=== PATIENT | female | born 1995 | race Caucasian/White ===

== ENCOUNTER 2022-03-31 10:38 | Emergency (ER) | payer SELFPAY ==
--- NOTE | ~2022-03-31 | US_ITS ---
US abdomen limited INDICATION: Right upper quadrant pain. History of gallstones. PROCEDURE: Realtime right upper abdominal ultrasound. COMPARISON: No prior studies for comparison. FINDINGS: The pancreas is normal without focal mass or pancreatic ductal dilation. Liver echotexture is increased, consistent with fatty infiltration. There is normal directional flow in the portal ve in. There are gallstones. Common bile duct measures 4.7 mm. No sonographic Recinos's sign. IMPRESSION: 1: Cholelithiasis. 2: Hepatic steatosis. Reviewed, dictated and finalized at location B. FABRICATOR
[2022-03-31 11:04] VITALS: BP 131/71; PULSE 110; RESP 18; TEMP 36.8; O2SAT 99
[2022-03-31 11:04] LABS: Basophils Percent Auto 0.4 % (0.2-1.2); Eosinophils Absolute Auto 0.1 K/mm3 (0-0.3); Eosinophils Percent Auto 1.2 % (0-4.4); Hematocrit 42.5 % (37.0-47.0); Hemoglobin 14.1 g/dL (12.0-15.0); Immature Granulocyte Absolute 0.04 K/mm3 (0.00-0.031); Immature Granulocyte Percent A 0.5 % (0-0.5); Lymphocytes Absolute Auto 1.94 K/mm3 (0.9-3.2); Lymphocytes Percent Auto 25.8 % (18.3-44.2); Mean Corpuscular HGB Conc 33.2 g/dl (32-36); Mean Corpuscular Hemoglobin 29.9 pg (26-34); Mean Platelet Volume 9.3 fl (7.4-10.4); Monocytes Absolute Auto 0.5 K/mm3 (0.1-0.6); Monocytes Percent Auto 6.6 % (2.6-8.5); Neutrophils Absolute Auto 4.9 K/mm3 (1.3-6.7); Neutrophils Percent Auto 65.5 % (45.5-73.1); Platelet Count Result 296 k/mm3 (150-375); Red Blood Count 4.72 M/mm3 (4.2-5.4); Red Cell Distribution Width 13.8 % (11.5-14.5); White Blood Count 7.5 K/mm3 (4.5-10.0)
[2022-03-31 11:08] LABS: Add Urine Microscopic? NO; Appearance Urine Slightly Cloudy (Clear); Bilirubin Urine Negative (Negative); Blood Urine Negative (Negative); Color Urine Light Yellow (Yellow); Glucose Urine UA Negative (Negative); Ketones Urine Negative (Negative); Leukocyte Esterase Ur Negative LEU/UL (Negative); Nitrate Urine Negative (Negative); Protein Urine Negative (Negative); Urobilinogen Urine 0.2 mg/dL (<2.0); pH Urine 7.5 (5.0-9.0)
[2022-03-31 11:15] LABS: Alanine Aminotransferase 31 U/L (6-35); Albumin Level 4.6 g/dL (3.5-5.1); Alkaline Phosphatase 81 U/L (38-126); Anion Gap 10 mmol/L (8-16); Aspartate Amino Transferase 26 U/L (14-36); Bilirubin,Total 0.2 mg/dL (0.2-1.3); Blood Urea Nitrogen 10 mg/dL (7-17); Calcium 8.8 mg/dL (8.4-10.2); Carbon Dioxide 21 mmol/L (22-30); Chloride 104 mmol/L (98-107); Estimated Glomerular Filt Rate > 60; Glucose 118 mg/dL (65-110); Lipase 81 U/L (23-300); Potassium 3.6 mmol/L (3.4-5.0); RBC Urine 0-2 /hpf (0-2); Sodium 135 mmol/L (137-145); Squamous Epithelial Cell Urine Many /hpf (Few); WBC Urine 0-3 /hpf
[2022-03-31 13:00] VITALS: BP 138/91; PULSE 93; RESP 18; O2SAT 99
--- NOTE | 2022-03-31 13:34 | ED.ABDPAIN ---
HPI - Abdominal Pain General Chief Complaint: Abdominal Pain Stated Complaint: back pain, vomiting Time Seen by Provider: 03/31/22 12:48 Source: patient Mode of arrival: ambulatory Limitations: no limitations History of Present Illness HPI narrative: This is a 26 year old female that presents to the ER for RUQ abdominal pain ongoing over the last couple of weeks. Associated with nausea and vomiting. She was seen in the ER for this and had imaging done and was referred to a general surgeon for gallstones. She followed up with her PCP who sent her back to the ER. Reports some diarrhea. Has been taking [place] as needed for pain. Denies fever or hematochezia. Related Data Home Medications Medication Instructions Recorded Confirmed oxcarbazepine 600 mg tablet mg 03/31/22 risperidone 2 mg tablet mg 03/31/22 topiramate 200 mg tablet mg 03/31/22 venlafaxine 150 mg mg PO 03/31/22 capsule,extended release 24 hr Allergies Allergy/AdvReac Type Severity Reaction Status Date / Time No Known Allergies Allergy Verified 03/31/22 14:01 Review of Systems Review of Systems: CONSTITUTIONAL: Denies fever GASTROINTESTINAL: Reports abdominal pain, nausea, vomiting, and diarrhea. GENITOURINARY: Denies dysuria All systems reviewed & are unremarkable except as noted in HPI and below PMFSH Past Medical History Medical History (Updated 03/31/22 @ 15:23 by Elizabeth Oquendo PA-C) History of anxiety History of migraine Surgical History Surgical History (Updated 03/31/22 @ 13:37 by Elizabeth Oquendo PA-C) History of Social History Social History (Updated 03/31/22 @ 13:38 by Elizabeth Oquendo PA-C) Smoking status: Never smoker Substance use: current Substance use type: marijuana Exam Narrative: GENERAL: Well-appearing, well-nourished, and in no acute distress. HEAD: Normocephalic, atraumatic. EYES: EOMI. CHEST: Clear to auscultation. No respiratory distress. No wheezes rales or rhonchi HEART: Regular rate and rhythm. No murmur heard. Normal peripheral pulses. ABDOMEN: Soft, nondistended, normal active bowel sounds. Tender to palpation in the right upper quadrant, without guarding. No CVA tenderness EXTREMITIES: Normal range of motion. No edema. SKIN: Warm, dry, no rash. NEURO: No focal deficits. Alert and oriented x3. PSYCH: Normal mood and affect Course Course Emergency Course: Patient was updated on case findings. Resting comfortably. Agrees with plan of care. Reports she has follow-up with general surgery April 09 Vital Signs Vital signs: Vital Signs Temperature 98.2 F 03/31/22 11:04 Pulse Rate 110 H 03/31/22 11:04 Respiratory Rate 18 03/31/22 11:04 Blood Pressure 131/71 03/31/22 11:04 Pulse Oximetry 99 03/31/22 11:04 Oxygen Delivery Room Air 03/31/22 11:04 Temperature 98.2 F 03/31/22 11:04 Pulse Rate 86 03/31/22 14:48 Respiratory Rate 16 03/31/22 14:48 Blood Pressure 123/93 H 03/31/22 14:48 Pulse Oximetry 98 03/31/22 14:48 Oxygen Delivery Room Air 03/31/22 11:04 MDM - Abdominal Pain MDM Narrative Medical decision making narrative: Patient presents to the emergency department for right upper quadrant pain ongoing over the last couple of weeks. She is afebrile and nontoxic-appearing. Mildly tachycardic upon arrival, this normalized with IV fluid hydration and pain medication. CBC is without leukocytosis. Liver enzymes and lipase are normal. UA without evidence of infection. Her bedside test is negative. Right upper quadrant ultrasound shows cholelithiasis and hepatic steatosis. No sonographic Recinos sign or evidence of cholecystitis. Patient was updated on case findings. Resting comfortably. Agrees with plan of care. Reports she has follow-up with general surgery April 09. Will be given the name of our general surgeons if needed. She was instructed on a low-fat diet and pain medication as needed in the meantime. She was gi
[2022-03-31] MEDS: MORPHINE SULFATE (*CRX) 4 MG/ML INJ IV PUSH (14:03)
[2022-03-31] MEDS: ONDANSETRON INJ 4 MG/2 ML VIAL IV PUSH (14:03)
[2022-03-31] MEDS: SODIUM CHLORIDE 0.9% IV 500 ML 999 ML IV CONT (14:47)
[2022-03-31 14:48] VITALS: BP 123/93; PULSE 86; RESP 16; O2SAT 98
[2022-03-31 15:40] VITALS: BP 128/82; PULSE 91; RESP 16; O2SAT 99
== END 2022-03-31 15:41 | disposition home or self-care (01) ==
PROVIDERS: Emergency Medicine; Emergency Provider Physician Assistant
DX: K80.20 Calculus of gallbladder without cholecystitis without obstruction (principal); K76.0 Fatty (change of) liver, not elsewhere classified
CPT/HCPCS: 36415; 76705; 80053; 81003; 81025; 83690; 85025; 96361; 96365; 96375; 99284; J0131; J2270; J2405; J7040

== ENCOUNTER 2022-08-04 09:57 | Emergency (ER) | payer SELFPAY ==
[2022-08-04 10:00] VITALS: BP 140/98; PULSE 110; RESP 18; TEMP 37.3; O2SAT 98
--- NOTE | 2022-08-04 10:09 | ED_ITS ---
HPI - General Adult General Chief complaint: Abdominal Pain Stated complaint: abdominal pain Time Seen by Provider: 08/04/22 10:09 Related Data Home Medications Medication Instructions Recorded Confirmed oxcarbazepine 600 mg tablet 600 mg PO AC 03/31/22 08/04/22 risperidone 2 mg tablet 2 mg PO DAILY 03/31/22 08/04/22 topiramate 200 mg tablet 200 mg PO DAILY 03/31/22 08/04/22 venlafaxine 150 mg 150 mg PO DAILY 03/31/22 08/04/22 capsule,extended release 24 hr hydroxyzine pamoate 50 mg capsule 50 mg PO TID 08/04/22 08/04/22 lorazepam 0.5 mg tablet 0.5 mg PO PRN PRN Anxiety 08/04/22 08/04/22 Allergies Allergy/AdvReac Type Severity Reaction Status Date / Time No Known Allergies Allergy Verified 08/04/22 10:02 [facility] Past Medical History Medical History History of anxiety History of migraine Surgical History Surgical History History of Social History Social History Smoking status: Never smoker Substance use: current Substance use type: marijuana Course Vital Signs Vital signs: Vital Signs Temperature 37.3 C 08/04/22 10:00 Pulse Rate 110 H 08/04/22 10:00 Respiratory Rate 18 08/04/22 10:00 Blood Pressure 140/98 H 08/04/22 10:00 Pulse Oximetry 98 08/04/22 10:00 Oxygen Delivery Room Air 08/04/22 10:00 Temperature 37.3 C 08/04/22 10:00 Pulse Rate 110 H 08/04/22 10:00 Respiratory Rate 18 08/04/22 10:00 Blood Pressure 140/98 H 08/04/22 10:00 Pulse Oximetry 98 08/04/22 10:00 Oxygen Delivery Room Air 08/04/22 10:00 Medical Decision Making Vital Signs Vital Signs: Vital Signs Temperature 37.3 C 08/04/22 10:00 Pulse Rate 110 H 08/04/22 10:00 Respiratory Rate 18 08/04/22 10:00 Blood Pressure 140/98 H 04/18/23 10:00 Pulse Oximetry 98 08/04/22 10:00 Oxygen Delivery Room Air 08/04/22 10:00 Temperature 37.3 C 08/04/22 10:00 Pulse Rate 110 H 08/04/22 10:00 Respiratory Rate 18 08/04/22 10:00 Blood Pressure 140/98 H 08/04/22 10:00 Pulse Oximetry 98 08/04/22 10:00 Oxygen Delivery Room Air 08/04/22 10:00 Discharge Plan Discharge Prescriptions: No Action hydroxyzine pamoate 50 mg capsule 50 mg PO TID lorazepam 0.5 mg tablet 0.5 mg PO PRN PRN (Reason: Anxiety) venlafaxine 150 mg capsule,extended release 24hr 150 mg PO DAILY risperidone 2 mg tablet 2 mg PO DAILY oxcarbazepine 600 mg tablet 600 mg PO AC Rx Instructions: 1200 mg hs topiramate 200 mg tablet 200 mg PO DAILY Follow-up/Referrals: UNKNOWN,DOCTOR [Primary Care Provider] -
--- NOTE | 2022-08-04 10:10 | ED.ABDPAIN ---
HPI - Abdominal Pain General Chief Complaint: Abdominal Pain Stated Complaint: abdominal pain Time Seen by Provider: 08/04/22 10:09 Source: patient Mode of arrival: ambulatory History of Present Illness HPI narrative: 26-year-old female, smoker this marijuana use, with a history of anxiety / depression, migraine presents to the ER with a five-day history of -- left flank/ lower abdominal pain. No nausea/ vomiting. No fever -- chronic diarrhea since the cholecystectomy 5 months ago -- increased urinary frequency. No dysuria or hematuria MD elicited complaint: abdominal pain and flank pain Pertinent past history: none Onset (ago): day(s) ( started 5 days ago) Pain Consistency: constant Location: R flank and suprapubic Severity: moderate Quality: aching Radiation: none Migration to: no migration Exacerbating factors: nothing Relieving factors: nothing Associated symptoms: diarrhea Related Data Patient : No Home Medications Medication Instructions Recorded Confirmed oxcarbazepine 600 mg tablet 600 mg PO AC 03/31/22 08/04/22 risperidone 2 mg tablet 2 mg PO DAILY 03/31/22 08/04/22 topiramate 200 mg tablet 200 mg PO DAILY 03/31/22 08/04/22 venlafaxine 150 mg 150 mg PO DAILY 03/31/22 08/04/22 capsule,extended release 24 hr hydroxyzine pamoate 50 mg capsule 50 mg PO TID 08/04/22 08/04/22 lorazepam 0.5 mg tablet 0.5 mg PO PRN PRN Anxiety 08/04/22 08/04/22 Allergies Allergy/AdvReac Type Severity Reaction Status Date / Time No Known Allergies Allergy Verified 08/04/22 10:02 Review of Systems Review of Systems: All systems reviewed & are unremarkable except as noted in HPI and below Constitutional: Constitutional: Reports as per HPI and Reports no additional constitutional complaints Eyes: Eyes: Reports as per HPI and Reports no additional eye complaints ENT: Reports system reviewed and no additional complaints, except as documented and Reports as per HPI Cardiovascular: Cardiovascular: Reports as per HPI and Reports no additional cardiovascular complaints Respiratory: Respiratory: Reports as per HPI and Reports no additional respiratory complaints Gastrointestinal: Gastrointestinal: Reports as per HPI, Reports no additional gastrointestinal complaints, Reports abdominal pain and Reports diarrhea Genitourinary: Genitourinary: Reports no additional female genitourinary complaints and Reports as per HPI Musculoskeletal: Musculoskeletal: Reports no additional musculoskeletal complaints and Reports as per HPI Integumentary/Breasts: Skin/Breast: Reports system reviewed and no additional complaints, except as docu and Reports as per HPI Neurologic: Reports system reviewed and no additional complaints, except as documented and Reports as per HPI Psychiatric: Psychiatric: Reports no additional psychiatric complaints and Reports as per HPI Endocrine: Endocrine: Reports no additional endocrine complaints and Reports as per HPI Hematologic/Lymphatic: Hematologic/Lymphatic: Reports no additional hematologic/lymphatic complaints and Reports as per HPI Allergic/Immunologic: Allergic/Immunologic: Reports no additional allergic/immunologic complaints and Reports as per HPI [facility] Past Medical History Medical History History of anxiety History of migraine Surgical History Surgical History History of Social History Social History Smoking status: Never smoker Substance use: current Substance use type: marijuana Exam Narrative: tachycardia with a heart rate of 110. Blood pressure 140/98. Const: General: no acute distress Nutritional Appearance: obese HENMT: Head: normal to inspection Ears: external ears normal Face/Nose/Sinus: Normal external nose present Face and sinus: normal facial exam Mouth: Yes Normal oral and claire
--- NOTE | 2022-08-04 10:16 | PC.NURSE ---
assisted with patient examination
[2022-08-04 10:34] LABS: Pregnancy On Board Control Positive; Urine Pregnancy Test Negative
[2022-08-04 10:36] LABS: Appearance Urine Clear (Clear); Bilirubin Urine Negative (Negative); Blood Urine Negative (Negative); Color Urine Light Yellow (Yellow); Glucose Urine UA Negative (Negative); Ketones Urine Negative (Negative); Leukocyte Esterase Ur Negative LEU/UL (Negative); Nitrate Urine Negative (Negative); Protein Urine Negative (Negative); Urobilinogen Urine 0.2 mg/dL (0.2-1.0)
[2022-08-04 10:40] LABS: Basophils Absolute Auto 0.04 K/mm3 (0.00-0.10); Basophils Percent Auto 0.5 % (0.0-1.0); Eosinophils Absolute Auto 0.11 K/mm3 (0.02-0.50); Eosinophils Percent Auto 1.5 % (1.0-6.0); Hematocrit 41.2 % (35.0-49.0); Hemoglobin 13.6 g/dL (12.0-15.0); Immature Granulocyte Absolute 0.12 K/mm3 (0.00-0.00); Immature Granulocyte Percent A 1.6 % (0.0-0.0); Lymphocytes Absolute Auto 2.04 K/mm3 (1.10-4.50); Mean Corpuscular Hemoglobin 30.4 pg (27.0-31.0); Monocytes Absolute Auto 0.41 K/mm3 (0.10-0.90); Monocytes Percent Auto 5.4 % (2.0-11.0); Neutrophils Absolute Auto 4.8 K/mm3 (1.7-7.2); Platelet Count Result 281 K/mm3 (150-420); Red Blood Count 4.48 M/mm3 (4.20-5.40); Red Cell Distribution Width 13.4 % (11.6-14.4); White Blood Count 7.6 K/mm3 (4.8-10.8)
[2022-08-04 10:52] LABS: Add Urine Microscopic? NO
[2022-08-04 10:53] LABS: INR 0.9; Prothrombin Time 10.2 Seconds (9.50-12.10)
[2022-08-04 10:56] LABS: Alanine Aminotransferase 36 U/L (14-59); Albumin Level 3.4 g/dL (3.4-5.0); Alkaline Phosphatase 105 U/L (46-116); Anion Gap 9 mmol/L (8-16); Aspartate Amino Transferase 22 U/L (15-37); Bilirubin,Total 0.2 mg/dL (0.00-1.00); Blood Urea Nitrogen 10 mg/dL (7-18); Calcium 8.6 mg/dL (8.5-10.1); Carbon Dioxide 26 mmol/L (21-32); Chloride 104 mmol/L (98-108); Estimated CRCL calculation 121 ml/min; Estimated Glomerular Filt Rate > 60; Glucose 94 mg/dL (70-99); Lipase 29 U/L (16-77); Osmolality Calculated 287 mOsm/kg (285-295); Potassium 4.1 mmol/L (3.5-5.1); Sodium 139 mmol/L (136-145); Total Protein 6.9 g/dL (6.4-8.2)
[2022-08-04 10:59] LABS: Lactic Acid Reflex 1.5 mmol/L (0.4-2.0)
[2022-08-04 11:22] VITALS: BP 121/74; PULSE 74; RESP 16; O2SAT 100
== END 2022-08-04 11:25 | disposition home or self-care (01) ==
PROVIDERS: Emergency Provider Internal Medicine Critical Care Medicine
DX: R10.30 Lower abdominal pain, unspecified (principal); F41.9 Anxiety disorder, unspecified
CPT/HCPCS: 36415; 80053; 81001; 81003; 81025; 83605; 83690; 85025; 85610; 99283

== ENCOUNTER 2023-01-29 12:04 | Emergency (ER) | payer OTHER, SELFPAY ==
--- NOTE | ~2023-01-29 | CT_ITS ---
EXAMINATION: CT abdomen pelvis w con DATE: 01/29/2023 13:25 INDICATION: Low abdominal cramping. Nausea. Umbilical bleeding. TECHNIQUE: Computed tomography (CT) of the abdomen and pelvis was performed with 100 mL Omnipaque 350 intravenous contrast. Automated exposure control and iterative reconstruction technique were employe d. The dose-length product was 1463.35 mGy-cm. COMPARISON: None. FINDINGS: The visualized portions of the lung bases demonstrate minimal atelectasis. There is a 5 mm nodule in right lower lobe, likely benign. No pleural effusion. The heart size is normal. No pericard ial effusion. The liver is normal. There are changes of cholecystectomy. The spleen, pancreas, adrena l glands, and kidneys are normal. There is a 3.9 cm cyst in right ovary. There are no dilated loops o f bowel. The appendix is normal. There are no pathologically enlarged lymph nodes. There is no free i ntraperitoneal fluid. There is soft tissue thickening at the umbilicus with small focus of gas. There is mild thoracolumbar spondylosis. IMPRESSION: 1. 3.9 cm cyst in right ovary, likely a follicular cyst. 2. Soft tissue thickening at the umbilicus, consistent with inflammation. No drainable abscess. Reviewed, dictated and finalized at location A. IMPRESSION: 1. 3.9 cm cyst in right ovary, likely a follicular cyst. 2. Soft tissue thickening at the umbilicus, consistent with inflammation. No dr maye abscess.
[2023-01-29 12:04] VITALS: BP 137/95; PULSE 121; RESP 19; TEMP 37; O2SAT 97
--- NOTE | 2023-01-29 12:27 | ED.ABDPAIN ---
HPI - Abdominal Pain General Chief Complaint: Abdominal Pain Stated Complaint: belly button bleeding Time Seen by Provider: 01/29/23 12:07 Source: patient Mode of arrival: ambulatory Limitations: no limitations History of Present Illness HPI narrative: Patient is a 27-year-old female with a significant past medical history that presents today for umbilical bleeding. She states that she 1st noticed this yesterday she had blood coming out of her umbilical. She has never this in the past. She does admit to getting frequent nose bleeds. She also has abdominal cramping in the lower abdominal area is more generalized. She also states she has not had a period in 6 months but used to be regular before that. 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 She denies any systemic symptoms. MD elicited complaint: abdominal pain Pertinent past history: none Onset (ago): day(s) Pain Consistency: intermittent Location: diffuse Severity: mild Pain scale (0-10): 2 Quality: cramping Radiation: RLQ Exacerbating factors: nothing Relieving factors: nothing Associated symptoms: other (umbilical bleeding) Related Data Date of Last Menstrual Period: 07/28/22 Patient : No Home Medications Medication Instructions Recorded Confirmed oxcarbazepine 600 mg tablet 600 mg PO AC 03/31/22 01/29/23 (Trileptal) risperidone 2 mg tablet 2 mg PO DAILY 03/31/22 01/29/23 topiramate 200 mg tablet 200 mg PO DAILY 03/31/22 01/29/23 venlafaxine 150 mg 150 mg PO DAILY 03/31/22 01/29/23 capsule,extended release 24 hr (Effexor XR) lorazepam 0.5 mg tablet 0.5 mg PO PRN PRN Anxiety 08/04/22 01/29/23 pantoprazole 40 mg tablet,delayed 40 mg PO DAILY 01/29/23 01/29/23 release Allergies Allergy/AdvReac Type Severity Reaction Status Date / Time No Known Allergies Allergy Verified 01/29/23 12:12 Review of Systems Review of Systems: All systems reviewed & are unremarkable except as noted in HPI and below Constitutional: Constitutional: Reports as per HPI Eyes: Eyes: Reports no additional eye complaints ENT: Reports system reviewed and no additional complaints, except as documented Cardiovascular: Cardiovascular: Reports no additional cardiovascular complaints Respiratory: Respiratory: Reports no additional respiratory complaints Gastrointestinal: Gastrointestinal: Reports abdominal pain ( generalized) and Reports other (umbilical bleeding) Musculoskeletal: Musculoskeletal: Reports no additional musculoskeletal complaints Integumentary/Breasts: Skin/Breast: Reports system reviewed and no additional complaints, except as docu Neurologic: Reports system reviewed and no additional complaints, except as documented Psychiatric: Psychiatric: Reports no additional psychiatric complaints Endocrine: Endocrine: Reports no additional endocrine complaints PMFSH Past Medical History Medical History History of anxiety History of migraine Surgical History Surgical History History of Social History Social History Smoking status: Never smoker Substance use: current Substance use type: marijuana Exam Const: General: cooperative, healthy appearing and comfortable Nutritional Appearance: obese Orientation/consciousness: oriented to person and oriented to place Limitations: no limitations HENMT: Head: normal to inspection Ears: hearing grossly normal bilaterally Eyes: General: appearance normal, both eyes and all related structures Neck: Neck: normal visual inspection Chest: Chest palpation & inspection: normal inspection of the chest Resp: Effort & Inspection: normal respiratory effort Auscultation: clear to auscultation bilaterally Percussion: percussion normal Cardio: Jugular venous distension: no JVD Palpation: normal PMI Rate: r
[2023-01-29 12:36] LABS: Appearance Urine Clear (Clear); Basophils Absolute Auto 0.04 K/mm3 (0.00-0.10); Basophils Percent Auto 0.6 % (0.0-1.0); Bilirubin Urine Negative (Negative); Blood Urine Negative (Negative); Color Urine Light Yellow (Yellow); Eosinophils Absolute Auto 0.13 K/mm3 (0.02-0.50); Eosinophils Percent Auto 2.1 % (1.0-6.0); Glucose Urine UA Negative (Negative); Hematocrit 40.6 % (35.0-49.0); Hemoglobin 13.6 g/dL (12.0-15.0); Immature Granulocyte Absolute 0.04 K/mm3 (0.00-0.00); Immature Granulocyte Percent A 0.6 % (0.0-0.0); Ketones Urine Negative (Negative); Leukocyte Esterase Ur Negative LEU/UL (Negative); Lymphocytes Absolute Auto 1.77 K/mm3 (1.10-4.50); Lymphocytes Percent Auto 28.3 % (18.0-42.0); Mean Corpuscular HGB Conc 33.5 g/dL (32.0-36.0); Mean Corpuscular Hemoglobin 30.9 pg (27.0-31.0); Mean Corpuscular Volume 92.3 fL (78.0-102.0); Monocytes Absolute Auto 0.35 K/mm3 (0.10-0.90); Monocytes Percent Auto 5.6 % (2.0-11.0); Neutrophils Absolute Auto 3.9 K/mm3 (1.7-7.2); Neutrophils Percent Auto 62.8 % (50.0-70.0); Nitrate Urine Negative (Negative); Platelet Count Result 305 K/mm3 (150-420); Protein Urine Negative (Negative); Specific Grav Ur <= 1.005 (1.010-1.020); Urobilinogen Urine 0.2 mg/dL (0.2-1.0); White Blood Count 6.3 K/mm3 (4.8-10.8)
[2023-01-29 12:37] LABS: Add Urine Microscopic? NO; Pregnancy On Board Control Positive; Urine Pregnancy Test Negative
[2023-01-29 12:50] LABS: Alanine Aminotransferase 18 U/L (14-59); Albumin Level 3.6 g/dL (3.4-5.0); Alkaline Phosphatase 100 U/L (46-116); Anion Gap 9 mmol/L (8-16); Aspartate Amino Transferase 12 U/L (15-37); Bilirubin,Total 0.3 mg/dL (0.00-1.00); Blood Urea Nitrogen 8 mg/dL (7-18); Calcium 8.9 mg/dL (8.5-10.1); Carbon Dioxide 25 mmol/L (21-32); Chloride 101 mmol/L (98-108); Estimated CRCL calculation 122 ml/min; Estimated Glomerular Filt Rate > 60; Glucose 122 mg/dL (70-99); Osmolality Calculated 279 mOsm/kg (285-295); Potassium 3.4 mmol/L (3.5-5.1); Sodium 135 mmol/L (136-145); Total Protein 7.1 g/dL (6.4-8.2)
--- NOTE | 2023-01-29 13:44 | ED.ABDPAIN ---
HPI - Abdominal Pain General Chief Complaint: Abdominal Pain Stated Complaint: belly button bleeding Time Seen by Provider: 01/29/23 12:07 Source: patient Mode of arrival: ambulatory Limitations: no limitations History of Present Illness HPI narrative: patient is a 27-year-old female with no significant past medical history presents today for abdominal pain and some umbilical bleeding. SHe states He woke up he started yesterday. This small amount of blood oozed out of the Umbilical area. The abdominal pain is diffuse. MD elicited complaint: abdominal pain Pertinent past history: none Onset (ago): day(s) Pain Consistency: intermittent Location: diffuse Severity: mild Pain scale (0-10): 2 Quality: cramping Radiation: RLQ Exacerbating factors: nothing Relieving factors: nothing Associated symptoms: other (umbilical bleeding) Related Data Patient : No Home Medications Medication Instructions Recorded Confirmed oxcarbazepine 600 mg tablet 600 mg PO AC 03/31/22 01/29/23 (Trileptal) risperidone 2 mg tablet 2 mg PO DAILY 03/31/22 01/29/23 topiramate 200 mg tablet 200 mg PO DAILY 03/31/22 01/29/23 venlafaxine 150 mg 150 mg PO DAILY 03/31/22 01/29/23 capsule,extended release 24 hr (Effexor XR) lorazepam 0.5 mg tablet 0.5 mg PO PRN PRN Anxiety 08/04/22 01/29/23 pantoprazole 40 mg tablet,delayed 40 mg PO DAILY 01/29/23 01/29/23 release Allergies Allergy/AdvReac Type Severity Reaction Status Date / Time No Known Allergies Allergy Verified 01/29/23 12:12 Review of Systems Review of Systems: All systems reviewed & are unremarkable except as noted in HPI and below Constitutional: Constitutional: Reports as per HPI and Reports no additional constitutional complaints ENT: Reports system reviewed and no additional complaints, except as documented Gastrointestinal: Gastrointestinal: Reports as per HPI Comments: Umbilical bleeding Genitourinary: Genitourinary: Reports no additional female genitourinary complaints Musculoskeletal: Musculoskeletal: Reports no additional musculoskeletal complaints Integumentary/Breasts: Skin/Breast: Reports system reviewed and no additional complaints, except as docu Neurologic: Reports system reviewed and no additional complaints, except as documented Psychiatric: Psychiatric: Reports no additional psychiatric complaints PMFSH Past Medical History Medical History History of anxiety History of migraine Surgical History Surgical History History of Social History Social History Smoking status: Never smoker Substance use: current Substance use type: marijuana Exam Const: General: cooperative, healthy appearing and comfortable HENMT: Head: normal to inspection Ears: hearing grossly normal bilaterally Eyes: General: appearance normal, both eyes and all related structures Visual Hernandez: normal visual hernandez by confrontation Chest: Chest palpation & inspection: normal inspection of the chest Resp: Effort & Inspection: normal respiratory effort Auscultation: clear to auscultation bilaterally Percussion: percussion normal Cardio: Jugular venous distension: no JVD Palpation: normal PMI Rate: regular rate Rhythm: regular rhythm Heart sounds: S1 normal heart sound present and S2 normal heart sound present GI: Inspection: other ( umbilical bleeding) GI Palp: Yes abdominal tenderness and Yes Soft to palpation Percussion: Yes normal to percussion Auscultation: normal bowel sounds Back/Spine/Pelvis: Back: no CVA tenderness Cervical Spine: normal cervical lordosis Thoracic/Lumbar Spine: thoracic and lumbar spine normal to inspection Skin: General skin exam: normal color Lesions: no lesions Rashes: no rashes Neuro: General: oriented to person, oriented to shilpa
[2023-01-29 14:18] VITALS: BP 132/88; PULSE 110; RESP 20; TEMP 36.9; O2SAT 98
== END 2023-01-29 14:26 | disposition home or self-care (01) ==
PROVIDERS: Emergency Provider Family Medicine; PCP Physician Assistant
DX: N83.201 Unspecified ovarian cyst, right side (principal); R19.05 Periumbilic swelling, mass or lump; R10.31 Right lower quadrant pain; Z79.899 Other long term (current) drug therapy
CPT/HCPCS: 36415; 74177; 80053; 81003; 81025; 85025; 99284; Q9967

== ENCOUNTER 2023-03-29 22:33 | Emergency (ER) | payer OTHER, SELFPAY ==
[2023-03-29 22:38] VITALS: BP 148/102; PULSE 94; RESP 18; TEMP 36.8; O2SAT 97
--- NOTE | 2023-03-29 22:53 | ED.GENADULT ---
HPI - General Adult General Chief complaint: Headache Stated complaint: headache Time Seen by Provider: 03/29/23 22:50 History of Present Illness HPI narrative: 27yo woman history of migraine headaches, well controlled since Botox in 2012 and on daily prophylactic Topamax, presents with a new migraine-type headache, both temples, throbbing, with light sensitivity, for the past 9 days or so. No fevers or chills. No loss of vision or balance. No focal numbness or weakness. She cannot identify a specific trigger though thinks muscle tension is part of what started it. Still taking her daily Topamax. Tried sumatriptan also without relief. Related Data Home Medications Medication Instructions Recorded Confirmed oxcarbazepine 600 mg tablet 600 mg PO AC 03/31/22 01/29/23 (Trileptal) risperidone 2 mg tablet 2 mg PO DAILY 03/31/22 01/29/23 topiramate 200 mg tablet 200 mg PO DAILY 03/31/22 01/29/23 venlafaxine 150 mg 150 mg PO DAILY 03/31/22 01/29/23 capsule,extended release 24 hr (Effexor XR) lorazepam 0.5 mg tablet 0.5 mg PO PRN PRN Anxiety 08/04/22 01/29/23 pantoprazole 40 mg tablet,delayed 40 mg PO DAILY 01/29/23 01/29/23 release Allergies Allergy/AdvReac Type Severity Reaction Status Date / Time No Known Allergies Allergy Verified 01/29/23 12:12 Review of Systems Review of Systems: All systems reviewed & are unremarkable except as noted in HPI and below Constitutional: Constitutional: Denies chills and Denies fever(s) ENT: Denies dysphagia Cardiovascular: Cardiovascular: Denies chest pain Respiratory: Respiratory: Denies dyspnea Gastrointestinal: Gastrointestinal: Denies abdominal pain Musculoskeletal: Musculoskeletal: Denies back pain and Denies myalgias Psychiatric: Psychiatric: Denies depression PMFSH Past Medical History Medical History History of anxiety History of migraine Surgical History Surgical History History of Social History Social History Smoking status: Never smoker Substance use: current Substance use type: marijuana Exam Const: General: healthy appearing and no acute distress Nutritional Appearance: well nourished Eyes: Conjunctivae: conjunctivae normal Neck: Other: supple Resp: Effort & Inspection: normal respiratory effort Cardio: Rate: regular rate GI: Inspection: non-distended Skin: General skin exam: normal color, no jaundice and no pallor Neuro: General: patient oriented x3, moves all extremities and no focal motor deficits Gait exam (Neuro): Normal gait present Extrem: General: no clubbing, cyanosis or edema Course Vital Signs Vital signs: Vital Signs Temperature 36.8 C 03/29/23 22:38 Pulse Rate 94 03/29/23 22:38 Respiratory Rate 18 03/29/23 22:38 Blood Pressure 148/102 H 03/29/23 22:38 Pulse Oximetry 97 03/29/23 22:38 Oxygen Delivery Room Air 03/29/23 22:38 Temperature 36.8 C 03/29/23 22:38 Pulse Rate 94 03/29/23 22:38 Respiratory Rate 18 03/29/23 22:38 Blood Pressure 148/102 H 03/29/23 22:38 Pulse Oximetry 97 03/29/23 22:38 Oxygen Delivery Room Air 03/29/23 22:38 Medical Decision Making MDM Narrative Medical decision making narrative: headache for several days with no lateralizing neuro deficits DDx tension headache, migraine headache, idiopathic intracranial hypertension Vital Signs Vital Signs: Vital Signs Temperature 36.8 C 03/29/23 22:38 Pulse Rate 94 03/29/23 22:38 Respiratory Rate 18 03/29/23 22:38 Blood Pressure 148/102 H 03/29/23 22:38 Pulse Oximetry 97 03/29/23 22:38 Oxygen Delivery Room Air 03/29/23 22:38 Temperature 36.8 C 03/29/23 22:38 Pulse Rate 94 03/29/23 22:38 Respiratory Rate 18 03/29/23 22:38 Blood Pressure 148/102 H 03/29
[2023-03-29] MEDS: PROMETHAZINE HCL 25 MG TABLET PO (23:02)
[2023-03-29] MEDS: diphenhydrAMINE HCl INJ 50 MG/ML VIAL IM (23:02)
[2023-03-29] MEDS: KETOROLAC (*BKC) 60 MG/2 ML VIAL IM (23:03)
[2023-03-29 23:22] VITALS: BP 125/77; PULSE 82; RESP 18; O2SAT 98
== END 2023-03-29 23:23 | disposition home or self-care (01) ==
PROVIDERS: Emergency Provider Emergency Medicine; PCP Physician Assistant
DX: G43.111 Migraine with aura, intractable, with status migrainosus (principal)
CPT/HCPCS: 96372; 99284; A9270; J1100; J1200; J1885

== ENCOUNTER 2023-05-01 15:04 | Emergency (ER) | payer OTHER, SELFPAY ==
--- NOTE | ~2023-05-01 | CT_ITS ---
CT of the Abdomen and Pelvis: Indication: Abdominal pain Technique: 2.5 mm axial scans were obtained through the abdomen and pelvis following intravenous adm inistration of 100 cc of Omnipaque 350. Dose reduction technique was used on this scan by utilizing a utomated exposure control and iterative reconstruction technique. The dose-length product (DLP) was 1 479.24 mGy-cm. COMPARISON: 01/29/2023 Findings: Scans through the lung bases are unremarkable. The liver, spleen, pancreas, adrenals and kidneys are within normal limits. Cholecystectomy clips are present. No evidence of aortic aneurysm. No lymphadenopathy. No bowel obstruction or bowel wall thickening. There is no evidence to suggest acute appendicitis. Images through the pelvis were performed. Urinary bladder unremarkable. No pelvic mass evident. No as cites. Impression: No significant abnormalities seen. Reviewed, dictated and finalized at [facility]. [employer] MEDICAL COORDINATOR Impression: No significant abnormalities seen.
[2023-05-01 15:05] VITALS: BP 155/92; PULSE 117; RESP 20; TEMP 37.4; O2SAT 98
[2023-05-01] MEDS: KETOROLAC 30 MG/ML VIAL (*BKC) IV PUSH (15:58)
[2023-05-01] MEDS: ONDANSETRON INJ 4 MG/2 ML VIAL IV PUSH (15:58)
[2023-05-01] MEDS: SODIUM CHLORIDE 0.9% IV 1,000 ML 999 ML IV CONT (15:58)
[2023-05-01 16:05] LABS: Basophils Absolute Auto 0.03 K/mm3 (0.00-0.10); Basophils Percent Auto 0.5 % (0.0-1.0); Eosinophils Absolute Auto 0.15 K/mm3 (0.02-0.50); Eosinophils Percent Auto 2.5 % (1.0-6.0); Hematocrit 42.5 % (35.0-49.0); Hemoglobin 14.2 g/dL (12.0-15.0); Immature Granulocyte Absolute 0.02 K/mm3 (0.00-0.00); Immature Granulocyte Percent A 0.3 % (0.0-0.0); Lymphocytes Absolute Auto 2.23 K/mm3 (1.10-4.50); Lymphocytes Percent Auto 36.9 % (18.0-42.0); Mean Corpuscular HGB Conc 33.4 g/dL (32.0-36.0); Mean Corpuscular Hemoglobin 30.5 pg (27.0-31.0); Mean Corpuscular Volume 91.4 fL (78.0-102.0); Mean Platelet Volume 9.1 fl (9.2-11.8); Monocytes Absolute Auto 0.34 K/mm3 (0.10-0.90); Monocytes Percent Auto 5.6 % (2.0-11.0); Neutrophils Absolute Auto 3.3 K/mm3 (1.7-7.2); Neutrophils Percent Auto 54.2 % (50.0-70.0); Platelet Count Result 350 K/mm3 (150-420); Red Blood Count 4.65 M/mm3 (4.20-5.40); Red Cell Distribution Width 13.2 % (11.6-14.4)
[2023-05-01 16:17] LABS: Partial Thromboplastin Time 28.1 SEC (23.90-30.70); Prothrombin Time 10.5 Seconds (9.50-12.10)
[2023-05-01 16:22] LABS: Appearance Urine Clear (Clear); Bilirubin Urine Negative (Negative); Blood Urine Negative (Negative); Color Urine Yellow (Yellow); Glucose Urine UA Negative (Negative); Ketones Urine Negative (Negative); Leukocyte Esterase Ur Negative LEU/UL (Negative); Nitrate Urine Negative (Negative); Protein Urine Negative (Negative); Urobilinogen Urine 0.2 mg/dL (0.2-1.0)
[2023-05-01 16:22] LABS: Lactic Acid Reflex 2.2 mmol/L (0.4-2.0)
[2023-05-01 16:25] LABS: Add Urine Microscopic? NO
[2023-05-01 16:26] LABS: Pregnancy On Board Control Positive; Urine Pregnancy Test Negative
[2023-05-01 16:29] LABS: Alanine Aminotransferase 30 U/L (14-59); Albumin Level 4.1 g/dL (3.4-5.0); Alkaline Phosphatase 95 U/L (46-116); Anion Gap 13 mmol/L (8-16); Aspartate Amino Transferase 12 U/L (15-37); Bilirubin,Total 0.2 mg/dL (0.00-1.00); Blood Urea Nitrogen 7 mg/dL (7-18); Calcium 8.5 mg/dL (8.5-10.1); Carbon Dioxide 23 mmol/L (21-32); Chloride 103 mmol/L (98-108); Estimated CRCL calculation 98 ml/min; Estimated Glomerular Filt Rate > 60; Glucose 111 mg/dL (70-99); Lipase 35 U/L (16-77); Osmolality Calculated 287 mOsm/kg (285-295); Potassium 3.3 mmol/L (3.5-5.1); Sodium 139 mmol/L (136-145); Total Protein 7.4 g/dL (6.4-8.2)
[2023-05-01 16:35] VITALS: BP 125/70; PULSE 100; RESP 18; TEMP 36.8; O2SAT 100
--- NOTE | 2023-05-01 18:43 | ED.ABDPAIN ---
HPI - Abdominal Pain General Chief Complaint: Abdominal Pain Stated Complaint: pelvic pain and back pain Time Seen by Provider: 05/01/23 15:21 Source: patient History of Present Illness HPI narrative: This is 27 year female that presents lower abdominal pain suprapubic and mid to lower back pain patient is status post cholecystectomy approximately a year ago, currently there is no chest pain no shortness of breath patient does complain of nausea with no episodes of vomiting no diarrhea or constipation no fever chills. MD elicited complaint: abdominal pain Pertinent past history: none Onset (ago): day(s) Pain Consistency: intermittent Location: RUQ Severity: moderate Pain scale (0-10): 7 Quality: aching Related Data Home Medications Medication Instructions Recorded Confirmed oxcarbazepine 600 mg tablet 600 mg PO AC 03/31/22 05/01/23 (Trileptal) risperidone 2 mg tablet 2 mg PO DAILY 03/31/22 05/01/23 topiramate 200 mg tablet 200 mg PO DAILY 03/31/22 05/01/23 venlafaxine 150 mg 150 mg PO DAILY 03/31/22 05/01/23 capsule,extended release 24 hr (Effexor XR) lorazepam 0.5 mg tablet 0.5 mg PO PRN PRN Anxiety 08/04/22 05/01/23 pantoprazole 40 mg tablet,delayed 40 mg PO DAILY 01/29/23 05/01/23 release Allergies Allergy/AdvReac Type Severity Reaction Status Date / Time No Known Allergies Allergy Verified 05/01/23 15:18 Review of Systems Review of Systems: All systems reviewed & are unremarkable except as noted in HPI and below PMFSH Past Medical History Medical History History of anxiety History of migraine Surgical History Surgical History History of Social History Social History Smoking status: Never smoker Substance use: current Substance use type: marijuana Exam Const: General: healthy appearing and no acute distress Nutritional Appearance: well nourished Limitations: no limitations HENMT: Head: normal to inspection Eyes: Conjunctivae: conjunctivae normal Pupils: Equal, round and reactive pupils present EOM: EOMs intact bilaterally Neck: Neck: normal visual inspection Chest: Chest palpation & inspection: normal inspection of the chest Resp: Effort & Inspection: normal respiratory effort Auscultation: clear to auscultation bilaterally Cardio: Rate: regular rate Rhythm: regular rhythm GI: GI Palp: Yes Soft to palpation Urinary Catheter: Urinary Catheter: patent and draining Back/Spine/Pelvis: Back: no CVA tenderness Skin: General skin exam: normal color Rashes: no rashes Neuro: General: patient oriented x3 and moves all extremities Extrem: General: normal to inspection Course Course Emergency Course: Patient received pain medication which eased her her pain in her lower back and abdomen, labs reviewed and white count is normal potassium is mildly decreased at 3.3, urinalysis with no evidence of UTI. After reassessment of pain pain patient's level has improved considerably with some pain medication. CT scan is unremarkable. Vital Signs Vital signs: Vital Signs Temperature 37.4 C 05/01/23 15:05 Pulse Rate 117 H 05/01/23 15:05 Respiratory Rate 20 05/01/23 15:05 Blood Pressure 155/92 H 05/01/23 15:05 Pulse Oximetry 98 05/01/23 15:05 Oxygen Delivery Room Air 05/01/23 15:05 Temperature 36.8 C 05/01/23 16:35 Pulse Rate 100 05/01/23 16:35 Respiratory Rate 18 05/01/23 16:35 Blood Pressure 125/70 05/01/23 16:35 Pulse Oximetry 100 05/01/23 16:35 Oxygen Delivery Room Air 05/01/23 16:35 MDM - Abdominal Pain Lab Data 05/01/23 15:44 05/01/23 15:44 Labs: Lab Results 05/01/23 05/01/23 Range/Units 15:44 15:45 WBC 6.0 (4.8-10.8) K/mm3 RBC 4.65 (4.20-5.40) M/mm3 Hgb 14.2 (12.0-15.0) g/dL Hct
[2023-05-01] MEDS: POTASSIUM BICARBONATE 25 MEQ TABEF 50 MEQ PO (18:52)
[2023-05-01 19:00] VITALS: BP 125/60; PULSE 91; RESP 16; TEMP 37; O2SAT 99
[2023-05-01 19:00] LABS: Reflex Lactic Acid Yes or No Add Lactic
== END 2023-05-01 18:55 | disposition home or self-care (01) ==
PROVIDERS: Emergency Provider Emergency Medicine; PCP Physician Assistant
DX: R10.11 Right upper quadrant pain (principal); Z79.899 Other long term (current) drug therapy
CPT/HCPCS: 36415; 74177; 80053; 81003; 81025; 83605; 83690; 85025; 85610; 85730; 96361; 96374; 96375; 99284; A9270; J1885; J2405; J7030; Q9967

== ENCOUNTER 2023-06-26 19:23 | Emergency (ER) | payer OTHER, SELFPAY ==
[2023-06-26 19:27] VITALS: BP 168/112; PULSE 133; RESP 20; TEMP 37.2; O2SAT 98
--- NOTE | 2023-06-26 19:30 | ECG_ITS ---
Measurements Intervals [place] Rate: 115 P: 39 WA: 164 QRS: 55 QRSD: 81 T: 42 QT: 326 QTc: 452 Interpretive Statements SINUS TACHYCARDIA NONSPECIFIC T-WAVE ABNORMALITY- ANT/INF LEADS BASELINE ARTIFACT- I, II, III, AVR, AVL, AVF ABNORMAL ECG NO PREVIOUS ECG AVAILABLE FOR COMPARISON Electronically Signed On 06-27-2023 9:58:00 CDT by Julio Ferrara D.O.
[2023-06-26] MEDS: ALPRAZolam (*CRX) 0.5 MG TABLET PO (19:41)
[2023-06-26] MEDS: KETOROLAC (*BKC) 60 MG/2 ML VIAL IM (19:41)
[2023-06-26 19:49] VITALS: BP 142/100; PULSE 78; RESP 18; O2SAT 99
[2023-06-26 20:02] VITALS: PULSE 101
[2023-06-26] MEDS: METOPROLOL TARTRATE 50 MG TAB PO (20:02)
[2023-06-26 20:17] VITALS: BP 125/94; PULSE 111; RESP 16; O2SAT 100
--- NOTE | 2023-06-26 20:29 | ED.HA ---
HPI - Headache General Chief Complaint: Headache Stated Complaint: High BP Time Seen by Provider: 06/26/23 19:30 Source: patient Mode of arrival: ambulatory Limitations: no limitations History of Present Illness HPI Narrative: This is a 27-year-old female who presents with a migraine headache has been taking her triptan with minimal relief. Patient has been having elevated blood pressures and has been monitoring at home and current blood pressure 168/112 with an elevated heart rate. Pain is rated about a 8/10 throbbing light sensitive and her typical migraine. Is no nausea vomiting no chest pain no shortness of breath no fever chills. MD elicited complaint: headache and migraine Onset (ago): hour(s) Onset description: gradually Location: frontal Severity: moderate Quality & Timing: throbbing Related Data Home Medications Medication Instructions Recorded Confirmed oxcarbazepine 600 mg tablet 600 mg PO AC 03/31/22 06/26/23 (Trileptal) risperidone 2 mg tablet 2 mg PO DAILY 03/31/22 06/26/23 topiramate 200 mg tablet 200 mg PO DAILY 03/31/22 06/26/23 venlafaxine 150 mg 150 mg PO DAILY 03/31/22 06/26/23 capsule,extended release 24 hr (Effexor XR) lorazepam 0.5 mg tablet 0.5 mg PO PRN PRN Anxiety 08/04/22 06/26/23 cariprazine 3 mg capsule (Vraylar) 3 mg PO DAILY 06/26/23 06/26/23 Allergies Allergy/AdvReac Type Severity Reaction Status Date / Time No Known Allergies Allergy Verified 06/26/23 19:26 Review of Systems Review of Systems: All systems reviewed & are unremarkable except as noted in HPI and below PMFSH Past Medical History Medical History History of anxiety History of migraine Surgical History Surgical History History of Social History Social History Smoking status: Never smoker Substance use: current Substance use type: marijuana Exam Const: General: healthy appearing and no acute distress Nutritional Appearance: well nourished Limitations: no limitations Eyes: Conjunctivae: conjunctivae normal Pupils: Equal, round and reactive pupils present EOM: EOMs intact bilaterally Direct Ophthalmoscopy: photophobia Neck: Neck: normal visual inspection, no lymphadenopathy and no meningeal signs Chest: Chest palpation & inspection: normal inspection of the chest Resp: Effort & Inspection: normal respiratory effort Auscultation: clear to auscultation bilaterally Cardio: Rate: tachycardic Rhythm: regular rhythm GI: GI Palp: Yes Soft to palpation Neuro: General: patient oriented x3, moves all extremities, no meningeal signs and no focal motor deficits Course Course Emergency Course: EKG shows normal sinus tachycardia initially at a rate of 133 patient with elevated blood pressure did receive Toradol for her headache and after reassessment brought her headache level down to a 3 out of 10 and also received some p.o. Xanax. Patient with an elevated blood pressure did receive 50mg p.o. metoprolol and blood pressure had improved significantly down to 125/94 with a heart rate of 103. Vital Signs Vital signs: Vital Signs Temperature 37.2 C 06/26/23 19:27 Pulse Rate 133 H 06/26/23 19:27 Respiratory Rate 20 06/26/23 19:27 Blood Pressure 168/112 H 06/26/23 19:27 Pulse Oximetry 98 06/26/23 19:27 Oxygen Delivery Room Air 06/26/23 19:27 Temperature 37.2 C 06/26/23 19:27 Pulse Rate 111 H 06/26/23 20:17 Respiratory Rate 16 06/26/23 20:17 Blood Pressure 125/94 H 06/26/23 20:17 Pulse Oximetry 100 06/26/23 20:17 Oxygen Delivery Room Air 06/26/23 20:17 Critical Care Time Critical Care Time Critical Care Time: No Discharge Plan Discharge Clinical Impression: Migraine Qualifiers: Migraine type: unspecified Status migrainosus presence: without status migrainosus I
[2023-06-26 20:43] VITALS: BP 138/98; PULSE 102; RESP 16; TEMP 36.8; O2SAT 98
== END 2023-06-26 20:43 | disposition home or self-care (01) ==
PROVIDERS: Emergency Provider Emergency Medicine; PCP Physician Assistant
DX: G43.909 Migraine, unspecified, not intractable, without status migrainosus (principal); I10 Essential (primary) hypertension; Z79.899 Other long term (current) drug therapy
CPT/HCPCS: 93005; 96372; 99283; A9270; J1885

== ENCOUNTER 2023-07-03 21:04 | Emergency (ER) | payer OTHER, SELFPAY ==
[2023-07-03 21:05] VITALS: BP 142/101; PULSE 110; RESP 17; TEMP 37.4; O2SAT 99
--- NOTE | 2023-07-03 21:07 | ECG_ITS ---
Measurements Intervals [place] Rate: 96 P: 35 MD: 219 QRS: 26 QRSD: 110 T: 33 QT: 330 QTc: 418 Interpretive Statements SINUS RHYTHM WITH FIRST DEGREE AV BLOCK MINIMAL Q WAVES- INFERIOR LEADS BORDERLINE T WAVE ABNORMALITY- ANTERIOR LEADS BORDERLINE ECG COMPARED TO ECG 06/26/2023 19:41:29 SINUS RHYTHM NOW PRESENT FIRST DEGREE AV BLOCK NOW PRESENT Electronically Signed On 07-04-2023 8:11:34 CDT by Julio Ferrara D.O.
[2023-07-03 21:09] VITALS: BP 142/101; PULSE 97; RESP 20; O2SAT 100
[2023-07-03 21:16] VITALS: BP 121/83; PULSE 94; RESP 14; O2SAT 97
[2023-07-03 21:31] VITALS: BP 108/75; PULSE 88; RESP 20; O2SAT 96
[2023-07-03 21:35] LABS: Basophils Absolute Auto 0.03 K/mm3 (0.00-0.10); Basophils Percent Auto 0.5 % (0.0-1.0); Eosinophils Absolute Auto 0.09 K/mm3 (0.02-0.50); Eosinophils Percent Auto 1.5 % (1.0-6.0); Hematocrit 38.7 % (35.0-49.0); Hemoglobin 12.7 g/dL (12.0-15.0); Immature Granulocyte Absolute 0.02 K/mm3 (0.00-0.00); Immature Granulocyte Percent A 0.3 % (0.0-0.0); Lymphocytes Absolute Auto 1.81 K/mm3 (1.10-4.50); Mean Corpuscular HGB Conc 32.8 g/dL (32-36); Mean Corpuscular Hemoglobin 30.1 pg (27.0-31.0); Mean Corpuscular Volume 91.7 fL (78.0-102.0); Mean Platelet Volume 8.8 fl (9.2-11.8); Monocytes Absolute Auto 0.35 K/mm3 (0.10-0.90); Monocytes Percent Auto 5.8 % (2.0-11.0); Neutrophils Absolute Auto 3.73 K/mm3 (1.70-7.20); Neutrophils Percent Auto 61.9 % (50.0-70.0); Platelet Count Result 335 K/mm3 (150-420); Red Blood Count 4.22 M/mm3 (4.20-5.40); Red Cell Distribution Width 13.3 % (11.6-14.4)
[2023-07-03 21:46] VITALS: BP 112/74; PULSE 82; RESP 16; O2SAT 96
[2023-07-03 21:56] LABS: Alanine Aminotransferase 38 U/L (14-59); Albumin Level 3.7 g/dL (3.4-5.0); Alkaline Phosphatase 90 U/L (46-116); Anion Gap 11 mmol/L (8-16); Aspartate Amino Transferase 23 U/L (15-37); Bilirubin,Total 0.2 mg/dL (0.00-1.00); Blood Urea Nitrogen 12 mg/dL (7-18); Calcium 8.4 mg/dL (8.5-10.1); Carbon Dioxide 25 mmol/L (21-32); Chloride 104 mmol/L (98-108); Estimated CRCL calculation 131 ml/min; Estimated Glomerular Filt Rate > 60; Glucose 110 mg/dL (70-99); Osmolality Calculated 290 mOsm/kg (285-295); Potassium 3.1 mmol/L (3.5-5.1); Sodium 140 mmol/L (136-145); Total Protein 6.9 g/dL (6.4-8.2)
--- NOTE | 2023-07-03 22:05 | ED.CHESTPAIN ---
HPI - Chest Pain General Chief Complaint: Chest Pain Stated Complaint: chest pain Time Seen by Provider: 07/03/23 21:05 Source: patient Mode of arrival: ambulatory Limitations: no limitations History of Present Illness HPI narrative: S this is a 27 year female presents chest as subsequently resolved and did describe epigastric discomfort, there is no fever chills no shortness of breath no diaphoresis no nausea or vomiting has history of anxiety depression. complaint: chest discomfort Onset (ago): hour(s) Timing of current episode: now resolved Pain location: epigastric Pain radiation: none Related Data Home Medications Medication Instructions Recorded Confirmed oxcarbazepine 600 mg tablet 600 mg PO AC 03/31/22 06/26/23 (Trileptal) risperidone 2 mg tablet 2 mg PO DAILY 03/31/22 06/26/23 topiramate 200 mg tablet 200 mg PO DAILY 03/31/22 06/26/23 venlafaxine 150 mg 150 mg PO DAILY 03/31/22 06/26/23 capsule,extended release 24 hr (Effexor XR) lorazepam 0.5 mg tablet 0.5 mg PO PRN PRN Anxiety 08/04/22 06/26/23 cariprazine 3 mg capsule (Vraylar) 3 mg PO DAILY 06/26/23 06/26/23 Allergies Allergy/AdvReac Type Severity Reaction Status Date / Time No Known Allergies Allergy Verified 07/03/23 21:18 Review of Systems Review of Systems: All systems reviewed & are unremarkable except as noted in HPI and below PMFSH Past Medical History Medical History History of anxiety History of migraine Surgical History Surgical History History of Social History Social History Smoking status: Never smoker Substance use: current Substance use type: marijuana Exam Const: General: cooperative, healthy appearing, comfortable, no acute distress and well developed HENMT: Head: normal to inspection Neck: Neck: normal visual inspection, full ROM, no lymphadenopathy and no meningeal signs Chest: Chest palpation & inspection: normal inspection of the chest and normal palpation of entire chest wall Resp: Effort & Inspection: normal respiratory effort and able to speak in complete sentences Auscultation: clear to auscultation bilaterally Cardio: Jugular venous distension: no JVD Palpation: normal PMI Rate: regular rate Rhythm: regular rhythm GI: Inspection: normal to inspection Urinary Catheter: Urinary Catheter: patent and draining Back/Spine/Pelvis: Back: no CVA tenderness Skin: General skin exam: normal color and no rashes or lesions noted Neuro: General: oriented to person, oriented to place and oriented to time Course Course Emergency Course: Labs reviewed with patient and all within normal limits except for potassium was 3.1 and received a dose of p.o. potassium. EKG shows normal sinus rhythm troponins are negative. Vital Signs Vital signs: Vital Signs Temperature 37.4 C 07/03/23 21:05 Pulse Rate 110 H 07/03/23 21:05 Respiratory Rate 17 07/03/23 21:05 Blood Pressure 142/101 H 07/03/23 21:05 Pulse Oximetry 99 07/03/23 21:05 Oxygen Delivery Room Air 07/03/23 21:05 Temperature 37.4 C 07/03/23 21:05 Pulse Rate 82 07/03/23 21:46 Respiratory Rate 16 07/03/23 21:46 Blood Pressure 112/74 07/03/23 21:46 Pulse Oximetry 96 07/03/23 21:46 Oxygen Delivery Room Air 07/03/23 21:05 MDM - Chest Pain Lab Data 07/03/23 21:30 07/03/23 21:30 Labs: Lab Results 07/03/23 Range/Units 21:30 WBC 6.0 (4.8-10.8) K/mm3 RBC 4.22 (4.20-5.40) M/mm3 Hgb 12.7 (12.0-15.0) g/dL Hct 38.7 (35.0-49.0) % MCV 91.7 (78.0-102.0) fL MCH 30.1 (27.0-31.0) pg MCHC 32.8 (32-36) g/dL RDW 13.3 (11.6-14.4) % Plt Count 335 (150-420) K/mm3 MPV 8.8 L (9.2-11.8) fl Immature Gran % (Auto) 0.3 H (0.0-0.0) % Neut % (Auto) 61.9 (50.0-70.0) %
[2023-07-03] MEDS: POTASSIUM BICARBONATE 25 MEQ TABEF 50 MEQ PO (22:09)
[2023-07-03 22:12] VITALS: BP 107/78; PULSE 88; RESP 18; O2SAT 98
== END 2023-07-03 22:18 | disposition home or self-care (01) ==
PROVIDERS: Emergency Provider Emergency Medicine
DX: R07.89 Other chest pain (principal); E87.6 Hypokalemia
CPT/HCPCS: 36415; 80053; 84484; 85025; 93005; 99284; A9270

== ENCOUNTER 2023-09-10 21:00 | Emergency (ER) | payer OTHER, SELFPAY ==
[2023-09-10 21:05] VITALS: BP 153/109; PULSE 108; RESP 18; TEMP 36.8; O2SAT 100
[2023-09-10 21:06] VITALS: BP 156/112; O2SAT 99
[2023-09-10 21:07] VITALS: BP 157/105; O2SAT 98
--- NOTE | 2023-09-10 21:38 | PC.NURSE ---
patient sitting on stretcher with family member at the bedside. patient is laughing and smiling in room. eyes open.
--- NOTE | 2023-09-10 21:50 | ED.HA ---
HPI - Headache General Chief Complaint: Headache Stated Complaint: migraine Source: patient Mode of arrival: ambulatory Limitations: no limitations History of Present Illness HPI Narrative: Patient is a 27-year-old female with a breakthrough migraine headache of her typical her IUD after missing 3 days of her Topamax. She was out of her medication but she restarted and it did not help. MD elicited complaint: headache and migraine Pertinent past history: migraines Onset (ago): week(s) (1) Onset description: gradually Location: diffuse and generalized Severity: similar to previous episodes Pain scale (0-10): 9 Quality & Timing: aching, throbbing and sharp Exacerbating factors: none Relieving factors: nothing Context: occurred at rest Associated symptoms: nausea Treatments prior to arrival: migraine medication Related Data Home Medications Medication Instructions Recorded Confirmed oxcarbazepine 600 mg tablet 600 mg PO AC 03/31/22 09/10/23 (Trileptal) risperidone 2 mg tablet 2 mg PO DAILY 03/31/22 09/10/23 topiramate 200 mg tablet 200 mg PO DAILY 03/31/22 09/10/23 venlafaxine 150 mg 150 mg PO DAILY 03/31/22 06/26/23 capsule,extended release 24 hr (Effexor XR) lorazepam 0.5 mg tablet 0.5 mg PO PRN PRN Anxiety 08/04/22 09/10/23 cariprazine 3 mg capsule (Vraylar) 3 mg PO DAILY 06/26/23 09/10/23 Allergies Allergy/AdvReac Type Severity Reaction Status Date / Time No Known Allergies Allergy Verified 07/03/23 21:18 Review of Systems Review of Systems: All systems reviewed & are unremarkable except as noted in HPI and below Constitutional: Constitutional: Reports no additional constitutional complaints Eyes: Eyes: Reports no additional eye complaints ENT: Reports system reviewed and no additional complaints, except as documented Cardiovascular: Cardiovascular: Reports no additional cardiovascular complaints Respiratory: Respiratory: Reports no additional respiratory complaints Gastrointestinal: Gastrointestinal: Reports no additional gastrointestinal complaints Genitourinary: Genitourinary: Reports no additional female genitourinary complaints Musculoskeletal: Musculoskeletal: Reports no additional musculoskeletal complaints Integumentary/Breasts: Skin/Breast: Reports system reviewed and no additional complaints, except as docu Neurologic: Reports system reviewed and no additional complaints, except as documented Psychiatric: Psychiatric: Reports no additional psychiatric complaints Endocrine: Endocrine: Reports no additional endocrine complaints Hematologic/Lymphatic: Hematologic/Lymphatic: Reports no additional hematologic/lymphatic complaints Allergic/Immunologic: Allergic/Immunologic: Reports no additional allergic/immunologic complaints [facility] Past Medical History Medical History History of anxiety History of migraine Surgical History Surgical History History of Social History Social History Smoking status: Never smoker Substance use: current Substance use type: marijuana Exam Const: General: healthy appearing Nutritional Appearance: well nourished Orientation/consciousness: patient oriented x3 HENMT: Head: normal to inspection Ears: external ears normal Face/Nose/Sinus: Normal external nose present Eyes: Conjunctivae: conjunctivae normal Pupils: Equal, round and reactive pupils present EOM: EOMs intact bilaterally Neck: Neck: normal visual inspection Chest: Chest palpation & inspection: normal inspection of the chest Resp: Effort & Inspection: normal respiratory effort and not labored Auscultation: clear to auscultation bilaterally Cardio: Rate: regular rate Rhythm: regular rhythm Heart sounds: no murmurs GI: Inspection: non-distended GI Palp: Yes Soft to palpation and No Tenderne
[2023-09-10 21:55] LABS: Appearance Urine Clear (Clear); Bilirubin Urine Negative (Negative); Blood Urine Negative (Negative); Color Urine Light Yellow (Yellow); Glucose Urine UA Negative (Negative); Ketones Urine Negative (Negative); Leukocyte Esterase Ur Negative LEU/UL (Negative); Nitrate Urine Negative (Negative); Protein Urine Negative (Negative); Urobilinogen Urine 0.2 mg/dL (0.2-1.0)
[2023-09-10 21:57] LABS: Add Urine Microscopic? NO; Pregnancy On Board Control Positive; Urine Pregnancy Test Negative
[2023-09-10] MEDS: SODIUM CHLORIDE 0.9% IV 1,000 ML 999 ML IV CONT (22:06)
[2023-09-10] MEDS: diphenhydrAMINE HCl INJ 50 MG/ML VIAL 25 MG IV PUSH (22:07)
[2023-09-10] MEDS: KETOROLAC 30 MG/ML VIAL (*BKC) IV PUSH (22:07)
[2023-09-10] MEDS: METOCLOPRAMIDE HCL INJ 10 MG/2 ML VIAL IV PUSH (22:07)
[2023-09-10 23:15] VITALS: PULSE 83; RESP 18; O2SAT 96
--- NOTE | 2023-09-10 23:16 | PC.NURSE ---
patient appears to be sleeping on stretcher. call light resting on her chest. respirations even and unlabored. went out to car.
[2023-09-10 23:20] VITALS: BP 130/96; O2SAT 97
== END 2023-09-10 23:31 | disposition home or self-care (01) ==
PROVIDERS: Emergency Provider Emergency Medicine; PCP Family Medicine
DX: R51.9 Headache, unspecified (principal); F41.9 Anxiety disorder, unspecified
CPT/HCPCS: 81003; 81025; 96361; 96374; 96375; 99284; J1200; J1885; J2765; J7030

== ENCOUNTER 2023-09-11 10:20 | Outpatient (CLI) | payer OTHER, SELFPAY ==
--- NOTE | ~2023-09-11 | MR_ITS ---
EXAMINATION: MR brain/brain stem wo con DATE: 09/11/2023 13:11 INDICATION: Headache. TECHNIQUE: Magnetic resonance imaging (MRI) of the brain and brainstem was performed without intraven ous contrast. COMPARISON: None. FINDINGS: There is no intracranial hemorrhage, acute infarction, or abnormal intracranial mass lesion . There is a punctate focus of increased T2-weighted signal intensity in the left frontal lobe white matter, which is normal as an isolated finding. The ventricles are normal in size. The orbits are nor mal. There is mild mucosal thickening in the ethmoid sinuses. The mastoid air cells are normal. IMPRESSION: 1. Normal brain. Reviewed, dictated and finalized at location A. IMPRESSION: 1. Normal brain.
== END 2023-09-11 10:21 | disposition home or self-care (01) ==
LOC: CHSIMG 10:22
PROVIDERS: PCP Family Medicine; Visit Provider Family Medicine
DX: R51.9 Headache, unspecified (principal)
CPT/HCPCS: 70551

== ENCOUNTER 2023-09-22 16:14 | Outpatient (CLI) | payer OTHER, SELFPAY ==
--- NOTE | ~2023-09-22 | CT_ITS ---
EXAMINATION: CT abdomen pelvis w con DATE: 09/22/2023 17:08 INDICATION: Umbilical pain. TECHNIQUE: Computed tomography (CT) of the abdomen and pelvis was performed with 100 mL Omnipaque 350 intravenous contrast. Automated exposure control and iterative reconstruction technique were employe d. The dose-length product was 1540.27 mGy-cm. COMPARISON: CT abdomen and pelvis 05/01/23 FINDINGS: The visualized portions of the lung bases demonstrate two 3 mm nodules on the right, likely benign. The heart size is normal. No pericardial effusion. The liver is normal. There are changes of cholecystectomy. The spleen, pancreas, adrenal glands, and kidneys are normal. There is a 4.3 cm cys t in right ovary. There are no dilated loops of bowel. The appendix is normal. There are no pathologi sudeep enlarged lymph nodes. There is no free intraperitoneal fluid. There is fat stranding at the umb ilicus. There is mild lumbar and thoracic spondylosis. IMPRESSION: 1. Fat stranding at the umbilicus, consistent with cellulitis. No drainable abscess. 2. 4.3 cm cyst in right ovary, likely a follicular cyst. Reviewed, dictated and finalized at location A. IMPRESSION: 1. Fat stranding at the umbilicus, consistent with cellulitis. No drainable abs cess. 2. 4.3 cm cyst in right ovary, likely a follicular cyst.
[2023-09-22 16:49] LABS: Estimated Glomerular Filt Rate > 60
== END 2023-09-22 16:15 | disposition home or self-care (01) ==
LOC: CHSIMG 16:15
PROVIDERS: PCP Family Medicine; Visit Provider Family Medicine
DX: L02.216 Cutaneous abscess of umbilicus (principal); N83.201 Unspecified ovarian cyst, right side
CPT/HCPCS: 74177; Q9967

== ENCOUNTER 2023-10-18 18:17 | Emergency (ER) | payer OTHER, SELFPAY ==
[2023-10-18] VITALS (9 sets, daily range): BP systolic 121–164; BP diastolic 65–95; PULSE 95–114; RESP 16–22; TEMP 36.3–36.8; O2SAT 97–98
--- NOTE | 2023-10-18 18:20 | ECG_ITS ---
Test Date: 2023-10-18 18:36:48 Measurements Intervals [place] Rate: 110 P: 45 NH: 199 QRS: 19 QRSD: 100 T: 48 QT: 333 QTc: 451 Interpretive Statements SINUS TACHYCARDIA POSSIBLE LEFT ATRIAL ENLARGEMENT CONSIDER INFERIOR INFARCT, AGE INDETERMINATE BASELINE WANDER- V4-V5 ABNORMAL ECG No previous ECG available for comparison Electronically Signed On 10-18-2023 20:32:48 CDT by Julio Ferrara D.O.
[2023-10-18] MEDS: METOPROLOL TARTRATE 50 MG TAB PO (18:47)
[2023-10-18 18:54] LABS: Basophils Absolute Auto 0.02 K/mm3 (0.00-0.10); Basophils Percent Auto 0.2 % (0.0-1.0); Eosinophils Absolute Auto 0.08 K/mm3 (0.02-0.50); Eosinophils Percent Auto 0.9 % (1.0-6.0); Hematocrit 35.9 % (35.0-49.0); Hemoglobin 12.5 g/dL (12.0-15.0); Immature Granulocyte Absolute 0.03 K/mm3 (0.00-0.00); Immature Granulocyte Percent A 0.3 % (0.0-0.0); Lymphocytes Absolute Auto 1.85 K/mm3 (1.10-4.50); Lymphocytes Percent Auto 20.7 % (18.0-42.0); Mean Corpuscular HGB Conc 34.8 g/dL (32-36); Mean Corpuscular Hemoglobin 30.4 pg (27.0-31.0); Mean Corpuscular Volume 87.3 fL (78.0-102.0); Mean Platelet Volume 8.3 fl (9.2-11.8); Monocytes Absolute Auto 0.54 K/mm3 (0.10-0.90); Monocytes Percent Auto 6.1 % (2.0-11.0); Neutrophils Percent Auto 71.8 % (50.0-70.0); Platelet Count Result 297 K/mm3 (150-420); Red Blood Count 4.11 M/mm3 (4.20-5.40); Red Cell Distribution Width 12.8 % (11.6-14.4); White Blood Count 8.9 K/mm3 (4.8-10.8)
[2023-10-18 19:19] LABS: Alanine Aminotransferase 20 U/L (14-59); Albumin Level 3.7 g/dL (3.4-5.0); Alkaline Phosphatase 89 U/L (46-116); Anion Gap 10 mmol/L (4-12); Aspartate Amino Transferase 15 U/L (15-37); Bilirubin,Total 0.3 mg/dL (0.00-1.00); Blood Urea Nitrogen 8 mg/dL (7-18); Calcium 8.5 mg/dL (8.5-10.1); Carbon Dioxide 26 mmol/L (21-32); Chloride 91 mmol/L (98-108); Estimated CRCL calculation 126 ml/min; Estimated Glomerular Filt Rate > 60; Glucose 105 mg/dL (70-99); Osmolality Calculated 262 mOsm/kg (285-295); Potassium 4.1 mmol/L (3.5-5.1); Sodium 127 mmol/L (136-145); Thyroid Stimulating Hormone 0.76 uIU/mL (0.36-3.74); Total Protein 7.2 g/dL (6.4-8.2); Troponin I < 4.0 ng/L (0.00-60.4)
--- NOTE | 2023-10-19 10:44 | ED.ARRPALP ---
HPI - Arrhythmia/Palpitations General Chief Complaint: Arrhythmia/Palpitations Stated Complaint: palpitations Time Seen by Provider: 10/18/23 18:19 Patient with some is a 27-year-old having palpitations otherwise no chest pain no shortness of breath no nausea vomiting abdominal pain. Source: patient History of Present Illness complaint: palpitations Onset (ago): day(s) Duration: intermittent Severity: mild Related Data Home Medications Medication Instructions Recorded Confirmed oxcarbazepine 600 mg tablet 600 mg PO AC 03/31/22 09/10/23 (Trileptal) risperidone 2 mg tablet 2 mg PO DAILY 03/31/22 09/10/23 topiramate 200 mg tablet 200 mg PO DAILY 03/31/22 09/10/23 venlafaxine 150 mg 150 mg PO DAILY 03/31/22 06/26/23 capsule,extended release 24 hr (Effexor XR) lorazepam 0.5 mg tablet 0.5 mg PO PRN PRN Anxiety 08/04/22 09/10/23 cariprazine 3 mg capsule (Vraylar) 3 mg PO DAILY 06/26/23 09/10/23 Allergies Allergy/AdvReac Type Severity Reaction Status Date / Time No Known Allergies Allergy Verified 10/18/23 18:22 Review of Systems Review of Systems: All systems reviewed & are unremarkable except as noted in HPI and below PMFSH Past Medical History Medical History History of anxiety History of migraine Surgical History Surgical History History of Social History Social History Smoking status: Never smoker Substance use: current Substance use type: marijuana Exam Const: General: healthy appearing and no acute distress Nutritional Appearance: well nourished Limitations: no limitations HENMT: Head: normal to inspection Resp: Effort & Inspection: normal respiratory effort Auscultation: clear to auscultation bilaterally Cardio: Rate: regular rate Rhythm: regular rhythm GI: GI Palp: Yes Soft to palpation Auscultation: normal bowel sounds Urinary Catheter: Urinary Catheter: patent and draining Skin: General skin exam: normal color Neuro: General: patient oriented x3 and moves all extremities Course Course Emergency Course: Patient had blood work reviewed and within normal limits received a dose of metoprolol 50 mg p.o.. Vital Signs Vital signs: Vital Signs Temperature 36.3 C L 10/18/23 18:21 Pulse Rate 114 H 10/18/23 18:21 Respiratory Rate 22 H 10/18/23 18:21 Blood Pressure 164/68 H 10/18/23 18:21 Pulse Oximetry 98 10/18/23 18:21 Oxygen Delivery Room Air 10/18/23 18:21 Temperature 36.8 C 10/18/23 19:38 Pulse Rate 95 10/18/23 19:38 Respiratory Rate 18 10/18/23 19:38 Blood Pressure 140/85 10/18/23 19:38 Pulse Oximetry 98 10/18/23 19:38 Oxygen Delivery Room Air 10/18/23 19:38 MDM - Arrhythmia/Palpitations Lab Data 10/18/23 18:50 10/18/23 18:50 Labs: Lab Results 10/18/23 Range/Units 18:50 WBC 8.9 (4.8-10.8) K/mm3 RBC 4.11 L (4.20-5.40) M/mm3 Hgb 12.5 (12.0-15.0) g/dL Hct 35.9 (35.0-49.0) % MCV 87.3 (78.0-102.0) fL MCH 30.4 (27.0-31.0) pg MCHC 34.8 (32-36) g/dL RDW 12.8 (11.6-14.4) % Plt Count 297 (150-420) K/mm3 MPV 8.3 L (9.2-11.8) fl Immature Gran % (Auto) 0.3 H (0.0-0.0) % Neut % (Auto) 71.8 H (50.0-70.0) % Lymph % (Auto) 20.7 (18.0-42.0) % Wilson % (Auto) 6.1 (2.0-11.0) % Eos % (Auto) 0.9 L (1.0-6.0) % Baso % (Auto) 0.2 (0.0-1.0) % Lymph # (Auto) 1.85 (1.10-4.50) K/mm3 Wilson # (Auto) 0.54 (0.10-0.90) K/mm3 Eos # (Auto) 0.08 (0.02-0.50) K/mm3 Baso # (Auto) 0.02 (0.00-0.10) K/mm3 Abs Immat Gran (auto) 0.03 H (0.00-0.00) K/mm3 Absolute Neuts (auto) 6.40 (1.70-7.20) K/mm3 Absolute Nucleated RBC 0.00 (0.00-0.00) K/mm3 Nucleated RBC % 0.0 (0-0.0) % Sodium 127 L (136-145) mmol/L Potassium 4.1 (3.5-5.1) mmol/L Chloride 91 L (98-108) mm
== END 2023-10-18 19:38 | disposition home or self-care (01) ==
PROVIDERS: Emergency Provider Emergency Medicine; PCP Family Medicine
DX: R00.2 Palpitations (principal); I10 Essential (primary) hypertension
CPT/HCPCS: 36415; 80053; 83735; 84443; 84484; 85025; 93005; 99284; A9270

== ENCOUNTER 2024-01-29 21:29 | Emergency (ER) | payer OTHER, SELFPAY ==
[2024-01-29 21:29] VITALS: BP 124/88; PULSE 92; RESP 18; TEMP 37.1; O2SAT 95
--- NOTE | 2024-01-29 21:59 | PC.NURSE ---
patient refusing IV and IV medications, would prefer just have them IM, ERP aware, see new orders
[2024-01-29] MEDS: KETOROLAC 30 MG/ML VIAL (*BKC) IM (22:05)
[2024-01-29] MEDS: PROCHLORPERAZINE EDISYLATE 10 MG/2 ML VIAL IM (22:05)
[2024-01-29] MEDS: diphenhydrAMINE HCl INJ 50 MG/ML VIAL 25 MG IM (22:05)
--- NOTE | 2024-01-29 22:18 | ED.HA ---
HPI - Headache General Chief Complaint: Headache Stated Complaint: headache Source: patient Mode of arrival: ambulatory Limitations: no limitations History of Present Illness HPI Narrative: This is a 28-year-old female, with history of migraines, who presents to the emergency department complaining of headache pain beginning today. The patient states the pain is similar to prior migraines, however today pain is located left. This is associated with photophobia and some blurred vision. She denies weakness, numbness, loss hearing, loss of consciousness and has no other complaints at this time. She states she has taken Tylenol and 25 mg Benadryl at home without improvement. Related Data Home Medications Medication Instructions Recorded Confirmed oxcarbazepine 600 mg tablet 600 mg PO AC 03/31/22 01/29/24 (Trileptal) lorazepam 0.5 mg tablet 0.5 mg PO PRN PRN Anxiety 08/04/22 01/29/24 cariprazine 3 mg capsule (Vraylar) 3 mg PO DAILY 06/26/23 01/29/24 metoprolol succinate 50 mg 50 mg PO BID 01/29/24 01/29/24 tablet,extended release 24 hr (Toprol XL) risperidone 3 mg tablet 3 mg PO DAILY 01/29/24 01/29/24 venlafaxine 150 mg 150 mg PO PRN 01/29/24 01/29/24 capsule,extended release 24 hr Allergies Allergy/AdvReac Type Severity Reaction Status Date / Time No Known Allergies Allergy Verified 01/29/24 21:48 Review of Systems Review of Systems: last menstrual period 2 weeks ago All systems reviewed & are unremarkable except as noted in HPI and below PMFSH Past Medical History Medical History History of anxiety History of migraine Surgical History Surgical History History of Social History Social History Smoking status: Current every day smoker Tobacco type: e-cigarettes/vaping Substance use: current Substance use type: marijuana Exam Narrative: GENERAL: Well-developed, well-nourished, and in no acute distress. HEAD: Normocephalic, atraumatic. EYES: PERRLA and EOMI. CHEST: Clear to auscultation. No respiratory distress. No wheezes rales or rhonchi HEART: Regular rate and rhythm. No murmur heard. Normal peripheral pulses. ABDOMEN: Soft, nontender, nondistended, normal active bowel sounds. EXTREMITIES: Normal range of motion. No edema. SKIN: Warm, dry, no rash. NEURO: Alert and oriented x3. No focal deficit. Moving all 4 limbs spontaneously PSYCH: Normal mood and affect. Course Course Emergency Course: 22:36 - On re-evaluation, after IM Toradol, Benadryl and Compazine, the patient feels improved and is comfortable with discharge. I discussed the findings and recommendations with the patient. Discussed return and emergency precautions including signs/symptoms of intracranial hemorrhage in stroke. The patient voiced understanding and agreement with the plan. All questions answered to her satisfaction. Vital Signs Vital signs: Vital Signs Temperature 98.7 F 01/29/24 21:29 Pulse Rate 92 01/29/24 21:29 Respiratory Rate 18 01/29/24 21:29 Blood Pressure 124/88 01/29/24 21:29 Pulse Oximetry 95 01/29/24 21:29 Oxygen Delivery Room Air 01/29/24 21:29 Temperature 98.7 F 01/29/24 21:29 Pulse Rate 92 01/29/24 21:29 Respiratory Rate 18 01/29/24 21:29 Blood Pressure 124/88 01/29/24 21:29 Pulse Oximetry 95 01/29/24 21:29 Oxygen Delivery Room Air 01/29/24 21:29 MDM - Headache MDM Narrative Medical decision making narrative: Plan: Pain control, antiemetics, reassess Differential Diagnosis Differential diagnosis: Likely migraine and tension headache Discharge Plan Discharge Clinical Impression: Migraine Qualifiers: Migraine type: unspecified Status migrainosus presence: without status migrainosus Intractability: not intractable Qualified Code(s): G43.909 - Migr
== END 2024-01-29 22:39 | disposition home or self-care (01) ==
PROVIDERS: Emergency Provider Preventive Medicine Aerospace Medicine; PCP Family Medicine
DX: G43.909 Migraine, unspecified, not intractable, without status migrainosus (principal); F17.290 Nicotine dependence, other tobacco product, uncomplicated; Z79.899 Other long term (current) drug therapy
CPT/HCPCS: 96372; 99284; J0780; J1200; J1885

== ENCOUNTER 2024-08-03 08:16 | Outpatient (CLI) | payer OTHER, SELFPAY ==
--- NOTE | ~2024-08-03 | MR_ITS ---
MRI of the brain Clinical History: Abnormal TSH Technique: Axial and sagittal T1-weighted images were acquired. These were followed by axial T2-weigh franny, diffusion weighted, gradient, and FLAIR images. Findings: There is no acute infarct or intracranial hemorrhage. 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 Ventricles and subarachnoid spaces are unremarkable. Orbits are unremarkable. Paranasal sinuses and m astoid air cells are clear. Major intracranial flow voids are intact. Sagittal midline structures are intact. 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 No acute abnormality. Reviewed, dictated and finalized at location M.
== END 2024-08-03 08:17 | disposition home or self-care (01) ==
LOC: CHSIMG 08:18
PROVIDERS: PCP Family Medicine; Visit Provider Family Medicine
DX: R79.89 Other specified abnormal findings of blood chemistry (principal)
CPT/HCPCS: 70551

== ENCOUNTER 2024-09-18 01:49 | Emergency (ER) | payer OTHER, SELFPAY ==
[2024-09-18 01:49] VITALS: BP 139/78; PULSE 96; RESP 18; TEMP 36.4; O2SAT 96
--- OUTSIDE RECORDS SUMMARY | 2024-09-18 01:50 | XMS_ITS | Referral Summary ---
Author Organization [address] Address [address] [place] [phone] Care Team Providers Care Cuprous Chloride Helper Name Role Phone Tenisha Coy MD Primary Care Provider Encounters Date Type Department Care Team Description 08/16/2024 10:00 AM CDT Office Visit [facility] Medical Group Diabetes Endocrine Care at [address] [place] [address] Cassie Armstrong DO Hypothyroidism, unspecified type (Primary Dx); Abnormal TSH from Last 3 Months Allergies No known active allergies Medications cariprazine (VRAYLAR) 3 mg capsule capsule Take 1 capsule (3 mg total) by mouth daily Active cyanocobalamin (Vitamin B-12) 1,000 mcg tablet Take 1 tablet (1,000 mcg total) by mouth 04/30/2022 Active hydrOXYzine (VISTARIL) 50 mg capsule Take 1 capsule (50 mg total) by mouth 3 (three) times a day as needed 04/30/2022 Active LORazepam (ATIVAN) 0.5 mg tablet Take 1 tablet (0.5 mg total) by mouth as needed 05/13/2022 Active metoprolol XL (TOPROL-XL) 100 mg 24 hr tablet Take 1 tablet (100 mg total) by mouth daily Active OXcarbazepine (TRILEPTAL) 600 mg tablet Take 1 tablet (600 mg total) by mouth 2 (two) times a day 03/20/2022 Active prazosin (MINIPRESS) 1 mg capsule Take 1 capsule (1 mg total) by mouth nightly 06/15/2024 Active risperiDONE (RisperDAL) 3 mg tablet Take 1 tablet (3 mg total) by mouth daily 08/09/2024 Active venlafaxine XR (EFFEXOR-XR) 150 mg 24 hr capsule Take 1 capsule (150 mg total) by mouth daily 04/30/2022 Active levothyroxine (SYNTHROID) 50 mcg tablet Take 1 tablet (50 mcg total) by mouth daily 30 tablet 11 08/16/2024 Active Active Problems No known active problems Social History Tobacco Use Types Packs/Day Years Used Date Smoking Tobacco: Never Assessed Smokeless Tobacco: Current Tobacco Cessation:Ready to Q uit: Not Asked; Counseling Given: Not Answered Comments Unknown Sex and Gender Information Value Date Recorded Sex Assigned at Not on file Legal Sex Female 10:42 AM CDT Gender Identity Not on file Sexual Orientation Not on file Last Filed Vital Signs Vital Sign Reading Time Taken Comments Blood Pressure 112/78 08/16/2024 9:50 AM CDT Pulse 103 08/16/2024 9:50 AM CDT Temperature - - Respiratory Rate - - Oxygen Saturation - - Inhaled Oxygen Concentration - - Weight 128.2 kg (282 lb 11.2 oz) 08/16/2024 9:50 AM CDT Height 162.6 cm (5' 4) 08/16/2024 9:50 AM CDT Body Mass Index 48.53 08/16/2024 9:50 AM CDT Plan of Treatment Not on file Procedures Procedure Name Priority Date/Time Associated Diagnosis Comments TSH Routine 08/07/2024 LIPID PANEL Routine 08/07/2024 VITAMIN D 25 HYDROXY Routine 08/07/2024 TSH+FREE T4 Routine 08/07/2024 COMPREHENSIVE METABOLIC PANEL Routine 08/07/2024 TSH Routine 07/25/2024 from Last 3 Months Results * (ABNORMAL) TSH+Free T4 (08/07/2024) SCRIBED T4, Free 0.62(A) 0.82 - 1.77 mcg/dL EXTERNAL LAB Blood 08/07/2024 Result [facility] Provider MD LAB BLOOD ORDERABLES Edit ed Result - Final Performing Organization Address [facility]/State/ZIP Co de Phone Number EXTERNAL LAB * (ABNORMAL) Vitamin D 25 hydroxy (08/07/2024) SCRIBED 25-OH Vitamin D 25.9(A) 30.0 - 100.0 ng/mL EXTERNAL LAB Blood 08/07/2024 Result [facility] Provider MD LAB BLOOD ORDERABLES Yesi l Result Performing Organization Address [facility] Co de Phone Number EXTERNAL LAB * TSH (08/07/2024) Scribed TSH 0.69 0.45 - 4.50 mcU/mL EXTERNAL LAB Blood 08/07/2024 Result [facility] Provider MD LAB BLOOD ORDERABLES Edit ed Result - Final Performing Organization Address [facility]/ZIP Co de Phone Number EXTERNAL LAB * (ABNORMAL) Lipid panel (08/07/2024) SCRIBED Cholesterol, Total 194 30 - 199 mg/dL EXTERNAL LAB SCRIBED Triglycerides 174(A) <=149 mg/dL EXTERNAL LAB SCRIBED HDL 29(A) >=40 mg/dL EXTERNAL LAB SCRIBED LDL 133(A) <=129 mg/dL EXTERNAL LAB Scribed Non-HDL Cholesterol 0 NONE mg/dL EXTERNAL LAB Comment:- SCRIBED Total Cholesterol/HDL Ratio 0 NONE EXTERNAL LAB Comment:- Blood 08/07/2024 Result [facility] Provider MD LAB BLOOD ORDERABLES Yesi l Result Performing Organization Address City/[facility]/ZIP Co de Phone Number EXTERNAL LAB * Comprehensive metabolic panel (08/07/2024) SCRIBED Sodium 135 - - - mmol/L EXTERNAL LAB SCRIBED Potassium 4.8 - - - mmol/L EXTERNAL LAB SCRIBED Chloride 98 - - - mmol/L EXTERNAL LAB SCRIBED Carbon Dioxide 22 - - - mmol/L EXTERNAL LAB SCRIBED Urea Nitrogen (BUN) 14 - - - mg/dl EXTERNAL LAB SCRIBED Creatinine 0.81 - - - mg/dl EXTERNAL LAB SCRIBED Glucose 92 - - - mg/dl EXTERNAL LAB SCRIBED Calcium 9.7 - - - mg/dl EXTERNAL LAB SCRIBED Bilirubin 0.2 - - - mg/dl EXTERNAL LAB SCRIBED Plasma Protein 7.0 - - - g/dl EXTERNAL LAB SCRIBED Albumin 4.5 - - - g/dl EXTERNAL LAB SCRIBED Alkaline Phosphatase 80 - - - Units/L EXTERNAL LAB SCRIBED Alanine Transaminase (ALT) 31 - - - Units/L EXTERNAL LAB SCRIBED Aspartate Transaminase (AST) 27 - - - Units/L EXTERNAL LAB SCRIBED eGFR in 100 - - - EXTERNAL LAB SCRIBED eGFR in NonAfrican [place]an 100 - - - EXTERNAL LAB Blood 08/07/2024 Historical Provider LAB BLOOD ORDERABLES Yesi l Result EXTERNAL LAB * (ABNORMAL) TSH (07/25/2024) Scribed TSH 0.44(A) 0.45 - 4.50 mcU/mL EXTERNAL LAB Blood 07/25/2024 Historical Provider LAB BLOOD ORDERABLES Yesi l Result EXTERNAL LAB from Last 3 Months Insurance [employer]ET[employer] [facility] Care Teams Cuprous Chloride Helper Relationship Specialty Start Date End Date Tenisha Coy MD [address] [place] [phone] PCP - General Family Medicine 08/09/24
--- OUTSIDE RECORDS SUMMARY | 2024-09-18 01:51 | XMS_ITS | Clinical Summary ---
Author Organization [address] Address [address] [place] [phone] Care Team Providers Care Gun Welder Name Role Phone Tenisha Coy MD Primary Care Provider Allergies No known active allergies Medications cariprazine [...] Active Active Problems No known active problems Encounters Date Type Department Care Team Description 08/16/2024 10:00 AM CDT Office Visit [facility] Medical Group Diabetes Endocrine Care at [address] [phone] Cassie Armstrong DO Hypothyroidism, unspecified type (Primary Dx); Abnormal TSH from Last 3 Months Social History Tobacco Use Types Packs/Day Years Used Date Smoking Tobacco: Never Assessed Smokeless Tobacco: Current Tobacco Cessation:Ready to Q uit: Not Asked; Counseling Given: Not Answered Comments Unknown Sex and Gender Information Value Date Recorded Sex Assigned at Not on file Legal Sex Female 10:42 AM CDT Gender Identity Not on file Sexual Orientation Not on file Obstetrics History Last Filed Vital Signs Vital Sign Reading [...] 08/16/2024 9:50 AM CDT Plan of Treatment Health Maintenance Due Date Last Done Comments Cervical Cancer Screening 1993 Depression Screening 1993 Hepatitis C Screening 1993 DTaP/Tdap/Td Vaccine (1 - Tdap) 2004 Varicella Vaccines (1 of 2 - 13+ 2-dose series) 2006 Hepatitis B Screening 12/26/2011 Regular Well Visit/Exam 18-64 12/26/2011 Influenza Vaccine (Season Ended) 2024 HPV Vaccines Aged Out No longer eligi ble based on patient's age to complete this topic Pneumococcal vaccine <65 Aged Out No longer eligible based on patient's age to complete this topic Procedures Procedure Name Priority Date/Time Associated Diagnosis Comments TSH Routine 08/07/2024 LIPID PANEL Routine 08/07/2024 VITAMIN D 25 HYDROXY Routine 08/07/2024 TSH+FREE T4 Routine 08/07/2024 COMPREHENSIVE METABOLIC PANEL Routine 08/07/2024 TSH Routine 07/25/2024 from Last 3 Months Results * (ABNORMAL) TSH+Free T4 (08/07/2024) SCRIBED T4, Free 0.62(A) 0.82 - 1.77 mcg/dL EXTERNAL LAB Blood 08/07/2024 Historical Provider MD LAB BLOOD ORDERABLES Edit ed Result - Final EXTERNAL LAB * (ABNORMAL) Vitamin D 25 hydroxy (08/07/2024) SCRIBED 25-OH Vitamin D 25.9(A) 30.0 - 100.0 ng/mL EXTERNAL LAB Blood 08/07/2024 Historical Provider MD LAB BLOOD ORDERABLES Yesi l Result EXTERNAL LAB * TSH (08/07/2024) Scribed TSH 0.69 0.45 - 4.50 mcU/mL EXTERNAL LAB Blood 08/07/2024 Historical Provider MD LAB BLOOD ORDERABLES Edit ed Result - Final EXTERNAL LAB * (ABNORMAL) Lipid panel (08/07/2024) SCRIBED Cholesterol, Total 194 30 - 199 mg/dL EXTERNAL LAB SCRIBED Triglycerides 174(A) <=149 mg/dL EXTERNAL LAB SCRIBED HDL 29(A) >=40 mg/dL EXTERNAL LAB SCRIBED LDL 133(A) <=129 mg/dL EXTERNAL LAB Scribed Non-HDL Cholesterol 0 NONE mg/dL EXTERNAL LAB Comment:- SCRIBED Total Cholesterol/HDL Ratio 0 NONE EXTERNAL LAB Comment:- Blood 08/07/2024 Result [facility] Historical Provider LAB BLOOD ORDERABLES Yesi l Result Performing Organization Address City/[facility]/ZIP Co de Phone Number EXTERNAL LAB * [...] - EXTERNAL LAB SCRIBED eGFR in NonAfrican [place]an 100 - - - EXTERNAL LAB Blood 08/07/2024 Result [facility] Historical Provider MD LAB BLOOD ORDERABLES Yesi l Result EXTERNAL LAB * (ABNORMAL) TSH (07/25/2024) Scribed TSH 0.44(A) 0.45 - 4.50 mcU/mL EXTERNAL LAB Blood 07/25/2024 Result [facility] Historical Provider LAB BLOOD ORDERABLES Yesi l Result EXTERNAL LAB from Last 3 Months Insurance [employer] [facility] Care Teams Gun Welder Relationship Specialty Start Date End Date Tenisha Coy MD [address] [place] [id number] PCP - General Family Medicine 08/09/24
--- NOTE | 2024-09-18 01:57 | ED_ITS ---
HPI - Skin/Abscess/Foreign Bdy General Chief complaint: Skin/Abscess/Foreign Body Stated complaint: Skin problem Time Seen by Provider: 09/18/24 01:56 Source: patient Mode of arrival: ambulatory Limitations: no limitations History of Present Illness HPI narrative: patient is a 28-year-old female with umbilical drainage and pain as well as localized skin pain for the past 3 days. Patient is currently on Macrobid for UTI. A similar skin infection has happened in the past. MD complaint: rash ( Umbilical) Onset (ago): day(s) ( 3) Location: generalized ( umbilical and lower abdomen skin) Severity: mild Severity scale (1-10): 3 Quality: burning, sharp and constant Pain Consistency: constant Relieving factors: none Exacerbating factors: palpation Context: other ( patient has progressively worsening umbilical rash and infection of the skin) Associated symptoms: denies other symptoms Treatments prior to arrival: other ( patient is on Macrobid for UTI) Related Data Home Medications ?Medication ?Instructions ?Recorded ?Confirmed ?Last Taken ?Type oxcarbazepine 600 mg tablet 600 mg PO AC 03/31/22 01/29/24 01/29/24 History (Trileptal) lorazepam 0.5 mg tablet 0.5 mg PO PRN PRN Anxiety 08/04/22 01/29/24 01/29/24 History cariprazine 3 mg capsule (Vraylar) 3 mg PO DAILY 06/26/23 01/29/24 01/29/24 History metoprolol succinate 50 mg 50 mg PO BID 01/29/24 01/29/24 01/29/24 History tablet,extended release 24 hr (Toprol XL) risperidone 3 mg tablet 3 mg PO DAILY 01/29/24 01/29/24 01/29/24 History venlafaxine 150 mg 150 mg PO PRN 01/29/24 01/29/24 Unknown History capsule,extended release 24 hr Allergies Allergy/AdvReac Type Severity Reaction Status Date / Time No Known Allergies Allergy Verified 09/18/24 02:10 Review of Systems Review of Systems: All systems reviewed & are unremarkable except as noted in HPI and below Constitutional: Constitutional: Reports no additional constitutional complaints Eyes: Eyes: Reports no additional eye complaints ENT: Reports system reviewed and no additional complaints, except as documented Cardiovascular: Cardiovascular: Reports no additional cardiovascular complaints Respiratory: Respiratory: Reports no additional respiratory complaints Gastrointestinal: Gastrointestinal: Reports no additional gastrointestinal complaints Genitourinary: Genitourinary: Reports no additional female genitourinary complaints Musculoskeletal: Musculoskeletal: Reports no additional musculoskeletal complaints Integumentary/Breasts: Skin/Breast: Reports system reviewed and no additional complaints, except as docu Neurologic: Reports system reviewed and no additional complaints, except as documented Psychiatric: Psychiatric: Reports no additional psychiatric complaints Endocrine: Endocrine: Reports no additional endocrine complaints Hematologic/Lymphatic: Hematologic/Lymphatic: Reports no additional hematologic/lymphatic complaints Allergic/Immunologic: Allergic/Immunologic: Reports no additional allergic/immunologic complaints [facility] Past Medical History Medical History History of migraine History of anxiety Surgical History Surgical History History of Social History Social History Smoking status: Current every day smoker Tobacco type: e-cigarettes/vaping Substance use: current Substance use type: marijuana Exam Const: General: healthy appearing Nutritional Appearance: well nourished Orientation/consciousness: patient oriented x3 HENMT: Head: normal to inspection Ears: external ears normal Face/Nose/Sinus: Normal external nose present Eyes: Conjunctivae: conjunctivae normal Pupils: Equal, round and reactive pupils present EOM: EOMs intact bilaterally Neck: Neck: normal visual inspection Chest: Chest palpation & inspection: normal inspection of the chest Resp: Effort & Inspection: normal respiratory effort and not labored Auscultation: clear to auscultation bilaterally and no crackles Cardio: Rate: regular rate Rhythm: regular rhythm Heart sounds: no murmurs GI: Inspection: non-distended Auscultation: normal bowel sounds and bowel sounds present : General: Yes bladder normal to palpation Back/Spine/Pelvis: Back: no CVA tenderness Skin: General skin exam: normal color Rashes: rash noted ( umbilicus has a clear to pus colored fluid as well as a red erythema rash ) Wounds: no wounds Other: rashes at the umbilicus and around the umbilicus circumferentially Neuro: General: patient oriented x3 Cranial nerves: Yes Nystagmus not present Speech: normal speech Gait exam (Neuro): Normal gait present Extrem: General: normal to inspection Psych: Mental Status: mental status grossly normal Affect: normal affect Attitude: cooperative MDM - Skin/Abscess/Foreign Bdy MDM Narrative Medical decision making narrative: patient is a 28-year-old female with umbilical and localized skin infection. We will stop her Macrobid for UTI. We will give her Rocephin IM. She will start Bactrim. Discharge Plan Discharge Clinical Impression: Cellulitis Qualifiers: Site of cellulitis: unspecified site Qualified Code(s): L03.90 - Cellulitis, unspecified Patient Disposition: Home Condition: Stable Instructions: Antibiotic Form, Cellulitis (ED) Additional Instructions: Please follow-up with primary doctor in the next week. Please stop home antibiotic of Macrobid for the UTI. We will cross cover this problem with other antibiotics. Patient Language: Danish Prescriptions: New sulfamethoxazole-trimethoprim [Bactrim DS] 800-160 mg tablet 1 tablet PO BID 10 Days Qty: 20 0RF No Action lorazepam 0.5 mg tablet 0.5 mg PO PRN PRN (Reason: Anxiety) Vraylar 3 mg Capsule 3 mg PO DAILY pantoprazole [Protonix] 40 mg tablet,delayed release (DR/EC) 40 mg PO QAM 28 Days Qty: 28 0RF metoprolol succinate [Toprol XL] 50 mg tablet extended release 24 hr 50 mg PO BID venlafaxine 150 mg capsule,extended release 24hr 150 mg PO PRN risperidone 3 mg tablet 3 mg PO DAILY oxcarbazepine [Trileptal] 600 mg tablet 600 mg PO AC Rx Instructions: 1200 mg hs Follow-up/Referrals: Zbigniew,Tenisha Varghese MD [Primary Care Provider] - Time of Disposition: 02:18
--- NOTE | 2024-09-18 02:06 | PC.NURSE ---
DR SANTORO AT THE BEDSIDE
--- OUTSIDE RECORDS SUMMARY | 2024-09-18 02:24 | XMS_ITS | Referral Summary ---
Author Organization [address] Address [address] [place] [phone] Care Team Providers Care Typing Secretary Name Role Phone Tenisha Coy MD Primary Care Provider Encounters Date Type Department Care Team Description 08/16/2024 10:00 AM CDT Office Visit [facility] Medical Group Diabetes Endocrine Care at [address] [place] [phone] Cassie Armstrong DO Hypothyroidism, unspecified [...] 1.77 mcg/dL EXTERNAL LAB Blood 08/07/2024 Result [facility] Provider MD LAB BLOOD ORDERABLES Edit ed Result - Final Performing Organization Address [facility]/State/ZIP Co de Phone Number EXTERNAL LAB * (ABNORMAL) Vitamin D 25 hydroxy (08/07/2024) SCRIBED 25-OH Vitamin D 25.9(A) 30.0 - 100.0 ng/mL EXTERNAL LAB Blood 08/07/2024 Result [facility] Provider MD LAB BLOOD ORDERABLES Yesi l Result Performing Organization Address [facility] Co de Phone Number EXTERNAL LAB * TSH (08/07/2024) Scribed TSH 0.69 0.45 - 4.50 mcU/mL EXTERNAL LAB Blood 08/07/2024 Result [facility] Provider MD LAB BLOOD ORDERABLES Edit ed Result - Final Performing Organization Address [facility]/ZIP Co de Phone Number EXTERNAL LAB * (ABNORMAL) Lipid panel (08/07/2024) SCRIBED Cholesterol, Total 194 30 - 199 mg/dL EXTERNAL LAB SCRIBED Triglycerides 174(A) <=149 mg/dL EXTERNAL LAB SCRIBED HDL 29(A) >=40 mg/dL EXTERNAL LAB SCRIBED LDL 133(A) <=129 mg/dL EXTERNAL LAB Scribed Non-HDL Cholesterol 0 NONE mg/dL EXTERNAL LAB Comment:- SCRIBED Total Cholesterol/HDL Ratio 0 NONE EXTERNAL LAB Comment:- Blood 08/07/2024 Result [facility] Provider MD LAB BLOOD ORDERABLES Yesi l Result Performing Organization Address City/[facility]/ZIP Co de Phone Number EXTERNAL LAB * [...] - EXTERNAL LAB SCRIBED eGFR in NonAfrican [place] 100 - - - EXTERNAL LAB Blood 08/07/2024 Historical Provider LAB BLOOD ORDERABLES Yesi l Result EXTERNAL LAB * (ABNORMAL) TSH (07/25/2024) Scribed TSH 0.44(A) 0.45 - 4.50 mcU/mL EXTERNAL LAB Blood 07/25/2024 Historical Provider LAB BLOOD ORDERABLES Yesi l Result EXTERNAL LAB from Last 3 Months Insurance [facility]ETNA [facility] Care Teams Typing Secretary Relationship Specialty Start Date End Date Tenisha Coy MD [address] [place] [phone] PCP - General Family Medicine 08/09/24
--- OUTSIDE RECORDS SUMMARY | 2024-09-18 02:24 | XMS_ITS | Clinical Summary ---
Author Organization [address] Address [address] [place] [phone] Care Team Providers Care Strong Nitric Operator Name Role Phone Tenisha Coy MD Primary [...] Description 08/16/2024 10:00 AM CDT Office Visit [facility] Medical Group Diabetes Endocrine Care at [address] [phone] Cassie Armstrong DO Hypothyroidism, unspecified type (Primary [...] NONE EXTERNAL LAB Comment:- Blood 08/07/2024 Result [facility] Historical Provider LAB BLOOD ORDERABLES Yesi l Result Performing Organization Address City/[facility]/ZIP Co de Phone Number EXTERNAL LAB * [...] - EXTERNAL LAB SCRIBED eGFR in NonAfrican [place]olan 100 - - - EXTERNAL LAB Blood 08/07/2024 Result [facility] Historical Provider MD LAB BLOOD ORDERABLES Yesi l Result EXTERNAL LAB * (ABNORMAL) TSH (07/25/2024) Scribed TSH 0.44(A) 0.45 - 4.50 mcU/mL EXTERNAL LAB Blood 07/25/2024 Result [facility] Historical Provider LAB BLOOD ORDERABLES Yesi l Result EXTERNAL LAB from Last 3 Months Insurance [employer] [facility]TER [facility] Care Teams Strong Nitric Operator Relationship Specialty Start Date End Date Tenisha Coy MD [address] [place] [phone] PCP - General Family Medicine 08/09/24
[2024-09-18] MEDS: SULFAMETHOXAZOLE/TRIMETHOPRIM 800/160 MG DS TABLET 1 TAB PO (02:46)
[2024-09-18] MEDS: cefTRIAXone 1 GM, LIDOCAINE 1% LOCAL INJ 2.1 ML IM (02:48)
[2024-09-18 03:22] VITALS: BP 128/78; PULSE 84; RESP 16; O2SAT 97
== END 2024-09-18 03:22 | disposition home or self-care (01) ==
LOC: CHSED 02:23
PROVIDERS: Emergency Provider Emergency Medicine; PCP Family Medicine
DX: L03.90 Cellulitis, unspecified (principal); F17.290 Nicotine dependence, other tobacco product, uncomplicated
CPT/HCPCS: 96372; 99283; A9270; J0696; J2003

== ENCOUNTER 2025-01-03 08:04 | Outpatient (CLI) | payer OTHER, SELFPAY ==
[2025-01-03 09:21] LABS: Free T4 Free Thyroxine 0.69 ng/dL (0.78-2.19)
[2025-01-03 09:35] LABS: Thyroid Stimulating Hormone 0.269 uIU/mL (0.465-4.680)
== END 2025-01-03 08:05 | disposition home or self-care (01) ==
LOC: CHSLAB 08:09
PROVIDERS: PCP Family Medicine
DX: R79.89 Other specified abnormal findings of blood chemistry (principal)
CPT/HCPCS: 36415; 84439; 84443; 86376

== ENCOUNTER 2025-01-30 07:53 | Outpatient (CLI) | payer OTHER, SELFPAY ==
--- OUTSIDE RECORDS SUMMARY | 2025-01-30 08:06 | XMS_ITS | Encounter Summary ---
Author Organization [facility] Healthcare Address [address] [place] [address] Care Team Providers Care Hr Business Partner Consultant Name Role Phone Tenisha Coy MD Primary Care Provider Encounter Details Date Type Department Care Team (Late st Contact Info) Description 01/29/2025 Telephone [facility] Medical Group Diabetes Endocrine Care at [address] [place] [phone] Cassie Armstrong [address] [place] [address] [address] [place] [address] Social History Tobacco Use Types Packs/Day Years Used Date Smoking Tobacco: Never Assessed Smokeless Tobacco: Current Comments Unknown Sex and Gender Information Value Date Recorded Sex Assigned at Not on file Legal Sex Female 10:42 AM CDT Gender Identity Not on file Sexual Orientation Not on file documented as of this encounter Miscellaneous Notes * Telephone Encounter - Nasreen Tavares MA - 01/29/2025 3:40 PM CDT Patient called requesting results from MRI. Please advise, thank you documented in this encounter Plan of Treatment Not on file documented as of this encounter Visit Diagnoses Not on filedocumented in this encounter Care Teams Hr Business Partner Consultant Relationship Specialty Start Date End Date Tenisha Coy MD [address] [place] [id number] PCP - General Family Medicine 08/09/24 documented as of this encounter
--- OUTSIDE RECORDS SUMMARY | 2025-01-30 08:06 | XMS_ITS | Clinical Summary ---
Author Organization [address] Address [address] [place] [id number] Care Team Providers Care Service Station Console Operator Name Role Phone Tenisha Coy MD Primary Care Provider Allergies No known active allergies Medications cariprazine (VRAYLAR) 3 mg capsule capsule Take 1 capsule (3 mg total) by mouth daily Active cyanocobalamin (Vitamin B-12) 1,000 mcg tablet Take 1 tablet (1,000 mcg total) by mouth 04/30/19 23 Active hydrOXYzine (VISTARIL) 50 mg capsule Take 1 capsule (50 mg total) by mouth 3 (three) times a day as needed 04/30/19 23 Active LORazepam (ATIVAN) 0.5 mg tablet Take 1 tablet (0.5 mg total) by mouth as needed 05/13/19 23 Active metoprolol XL (TOPROL-XL) 100 mg 24 hr tablet Take 1 tablet (100 mg total) by mouth daily Active OXcarbazepine (TRILEPTAL) 600 mg tablet Take 1 tablet (600 mg total) by mouth 2 (two) times a day 03/20/20 22 Active prazosin (MINIPRESS) 1 mg capsule Take 1 capsule (1 mg total) by mouth nightly 06/15/19 25 Active risperiDONE (RisperDAL) 3 mg tablet Take 1 tablet (3 mg total) by mouth daily 08/10/19 25 Active venlafaxine XR (EFFEXOR-XR) 150 mg 24 hr capsule Take 1 capsule (150 mg total) by mouth daily 04/30/19 23 Active levothyroxine (SYNTHROID) 75 mcg tablet Take 1 tablet (75 mcg total) by mouth daily 90 tablet 3 01/13/20 026 Active levothyroxine (SYNTHROID) 50 mcg tablet Take 1 tablet (50 mcg total) by mouth daily 30 tablet 08/17/19 025 Discontinued levothyroxine (SYNTHROID) 75 mcg tablet Take 1 tablet (75 mcg total) by mouth daily 30 tablet 01/13/20 025 Discontinued(Re order) Active Problems No known active problems Encounters Date Type Department Care Team Description 01/29/2025 Telephone [facility] Diabetes Endocrine Care at [address] [phone] Cassie Armstrong, DO 01/12/2025 Telephone [facility] Diabetes Endocrine Care at [address] [phone] Cassie Armstrong, DO 01/12/2025 Orders Only [facility] Diabetes Endocrine Care at [address] [phone] Cassie Armstrong, DO 01/12/2025 Telephone [facility] Diabetes Endocrine Care at [address] [phone] Cassie Armstrong, DO 01/03/2025 Orders Only [facility] Diabetes Endocrine Care at [address] [phone] Provider, MD Lenny from Last 3 Months Social History Tobacco [...] Screening 12/26/2011 Regular Well Visit/Exam 18-64 12/26/2011 HPV Vaccines (1 - 3-dose SCD M series) 2020 Influenza Vaccine (#1) 2024 Pneumococcal vaccine <65 Aged Out No longer eligible based on patient's age to complete this topic Procedures Procedure Name Priority Date/Time Associated Diagnosis Comments TSH+FREE T4 Routine 01/03/2025 11:16 AM CDT TSH Routine 01/03/2025 TSH Routine 01/03/2025 from Last 3 Months Results * TSH+Free T4 (01/03/2025 11:16 AM CDT) Blood us Historical Provider MD LAB BLOOD ORDERABLES Yesi l Result EXTERNAL LAB * (ABNORMAL) TSH (01/03/2025) Scribed TSH 0.27(A) 0.47 - 4.68 mcU/mL EXTERNAL LAB Blood 01/03/2025 Historical Provider MD LAB BLOOD ORDERABLES Yesi l Result EXTERNAL LAB * (ABNORMAL) TSH (01/03/2025) Scribed TSH 0.27(A) 0.47 - 4.68 mcU/mL EXTERNAL LAB Blood 01/03/2025 us Historical Provider LAB BLOOD ORDERABLES Yesi prescott Result EXTERNAL LAB from Last 3 Months Insurance [employer] [facility] Care Teams Service Station Console Operator Relationship Specialty Start Date End Date Tenisha Coy MD [address] [place] [phone] PCP - General Family Medicine 08/09/24
[2025-01-31 11:09] LABS: FSH 4.6 mIU/mL (.); LH 6.7 mIU/mL (.)
[2025-02-04 15:08] LABS: Estradiol, Sensitive 54.3 pg/mL (.)
== END 2025-01-30 07:54 | disposition home or self-care (01) ==
LOC: CHSLAB 07:57
PROVIDERS: PCP Family Medicine
DX: E03.8 Other specified hypothyroidism (principal)
CPT/HCPCS: 82024; 82533; 82670; 83001; 83002; 83003; 84146; 84305

== ENCOUNTER 2025-01-30 18:50 | Emergency (ER) | payer OTHER, SELFPAY ==
[2025-01-30 18:50] VITALS: BP 138/108; PULSE 90; RESP 20; TEMP 36.4; O2SAT 95
--- NOTE | 2025-01-30 19:15 | PC.NURSE ---
report to omayra montana
[2025-01-30] MEDS: SODIUM CHLORIDE 0.9% IV 500 ML 999 ML IV CONT (19:17)
[2025-01-30] MEDS: KETOROLAC 30 MG/ML VIAL (*BKC) IV PUSH (19:18)
[2025-01-30] MEDS: PROCHLORPERAZINE EDISYLATE 10 MG/2 ML VIAL 5 MG IV PUSH (19:19)
--- NOTE | 2025-01-30 19:52 | ED.HA ---
HPI - Headache General Chief Complaint: Headache Stated Complaint: Headache Time Seen by Provider: 01/30/25 19:00 Source: patient Mode of arrival: ambulatory Limitations: no limitations History of Present Illness HPI Narrative: 29-year-old with a history of migraine headaches presents to the ER with a complains of having headache for past 1 month however for past 2 days it has been steady. patient states that she used to get Botox injections in the past. She has an appointment coming up with a new neurologist in the next few weeks. Denies any fever or chills. No photophobia. MD elicited complaint: headache and migraine Onset (ago): week(s) Onset description: gradually Location: frontal Severity: moderate Quality & Timing: throbbing and similar to previous headaches Exacerbating factors: none Relieving factors: nothing Associated symptoms: nausea Treatments prior to arrival: acetaminophen and ibuprofen Related Data Home Medications ?Medication ?Instructions ?Recorded ?Confirmed ?Last Taken ?Type oxcarbazepine 600 mg tablet 600 mg PO AC 03/31/22 01/29/24 01/29/24 History (Trileptal) lorazepam 0.5 mg tablet 0.5 mg PO PRN PRN Anxiety 08/04/22 01/29/24 01/29/24 History cariprazine 3 mg capsule (Vraylar) 3 mg PO DAILY 06/26/23 01/29/24 01/29/24 History metoprolol succinate 50 mg 50 mg PO BID 01/29/24 01/29/24 01/29/24 History tablet,extended release 24 hr (Toprol XL) risperidone 3 mg tablet 3 mg PO DAILY 01/29/24 01/29/24 01/29/24 History venlafaxine 150 mg 150 mg PO PRN 01/29/24 01/29/24 Unknown History capsule,extended release 24 hr Allergies Allergy/AdvReac Type Severity Reaction Status Date / Time No Known Allergies Allergy Verified 01/30/25 19:27 Review of Systems Review of Systems: All systems reviewed & are unremarkable except as noted in HPI and below Constitutional: Constitutional: Reports no additional constitutional complaints Eyes: Eyes: Reports no additional eye complaints ENT: Reports system reviewed and no additional complaints, except as documented Cardiovascular: Cardiovascular: Reports no additional cardiovascular complaints Respiratory: Respiratory: Reports no additional respiratory complaints Gastrointestinal: Gastrointestinal: Reports no additional gastrointestinal complaints Musculoskeletal: Musculoskeletal: Reports no additional musculoskeletal complaints Integumentary/Breasts: Skin/Breast: Reports system reviewed and no additional complaints, except as docu Neurologic: Reports as per HPI Psychiatric: Psychiatric: Reports no additional psychiatric complaints PMFSH Past Medical History Medical History History of migraine History of anxiety Surgical History Surgical History History of Social History Social History Smoking status: Current every day smoker Tobacco type: e-cigarettes/vaping Substance use: current Substance use type: marijuana Exam Narrative: GENERAL: Well-appearing, well-nourished, and in no acute distress. HEAD: Normocephalic, atraumatic. EYES: PERRLA and EOMI. ENT: Nares clear, no rhinorrhea or epistaxis. Mucous membranes moist. NECK: Supple. CHEST: Clear to auscultation. No respiratory distress. HEART: Regular rate and rhythm. No murmur heard. Normal peripheral pulses. EXTREMITIES: Normal range of motion. No edema. SKIN: Warm, dry, no rash. NEURO: No focal deficits. Alert and oriented x3. PSYCH: Normal mood and affect. Course Course Emergency Course: Patient feeling much better she did receive IV fluids, Toradol, Compazine and Benadryl her headache has much resolved she feels comfortable going home. Vital Signs Vital signs: Vital Signs Temperature 36.4 C 01/30/25 18:50 Pulse Rate 90 01/30/25 18:50 Respiratory Rate 20 01/30/25 18:50 Blood Pressure 138/108 H 01/30/25 18:50 Pulse Oximetry 95 01/30/25 18:50 Oxygen Delivery Room Air 01/30/25 18:50 Temperature 36.4 C 01/30/25 18:50 Pulse Rate 90 01/30/25 18:50 Respiratory Rate 20 01/30/25 18:50 Blood Pressure 138/108 H 01/30/25 18:50 Pulse Oximetry 95 01/30/25 18:50 Oxygen Delivery Room Air 01/30/25 18:50 Discharge Plan Discharge Clinical Impression: Migraine Patient Disposition: Home Condition: Stable Instructions: Antibiotic Form, Migraine Headache (ED) Additional Instructions: Continue home medication, follow with a neurologist as scheduled Patient Language: Citizen [place] Prescriptions: No Action lorazepam 0.5 mg tablet 0.5 mg PO PRN PRN (Reason: Anxiety) Vraylar 3 mg Capsule 3 mg PO DAILY pantoprazole [Protonix] 40 mg tablet,delayed release (DR/EC) 40 mg PO QAM 28 Days Qty: 28 0RF metoprolol succinate [Toprol XL] 50 mg tablet extended release 24 hr 50 mg PO BID venlafaxine 150 mg capsule,extended release 24hr 150 mg PO PRN risperidone 3 mg tablet 3 mg PO DAILY sulfamethoxazole-trimethoprim [Bactrim DS] 800-160 mg tablet 1 tablet PO BID 10 Days Qty: 20 0RF cephalexin 500 mg capsule 500 mg PO BID 10 Days Qty: 20 0RF oxcarbazepine [Trileptal] 600 mg tablet 600 mg PO AC Rx Instructions: 1200 mg hs Follow-up/Referrals: Zbigniew,Tenisha Varghese MD [Primary Care Provider, Unknown] Time of Disposition: 19:56
[2025-01-30 20:12] VITALS: BP 112/76; PULSE 68; RESP 16; TEMP 36.6; O2SAT 99
== END 2025-01-30 20:19 | disposition home or self-care (01) ==
PROVIDERS: Emergency Provider Family Medicine; PCP Family Medicine
DX: G43.909 Migraine, unspecified, not intractable, without status migrainosus (principal); F17.290 Nicotine dependence, other tobacco product, uncomplicated
CPT/HCPCS: 96374; 96375; 99284; J0780; J1200; J1885; J7040